=== PATIENT | female | born 1960 | race Caucasian/White ===

== ENCOUNTER → 2016-04-30 | Outpatient (CLI) | payer BC ==
[~2016-04-30] MED LIST: LEVO125C2 PO; NAPR1TAB9 PO
[2016-04-30 12:51] LABS: THYROID STIMULATING HORMONE 0.01 uIu/ml (0.300-4.500)
== END | disposition home or self-care (01) ==
LOC: C.LAB1850 10:53
PROVIDERS: ATTEND Family Medicine
DX: E89.0 Postprocedural hypothyroidism (principal)

== ENCOUNTER → 2016-06-12 | Outpatient (CLI) | payer BC ==
[2016-06-12 12:38] LABS: THYROID STIMULATING HORMONE < 0.005 uIu/ml (0.300-4.500)
== END | disposition home or self-care (01) ==
LOC: C.LAB1850 11:03
PROVIDERS: ATTEND Internal Medicine Endocrinology, Diabetes & Metabolism
DX: E03.9 Hypothyroidism, unspecified (principal)

== ENCOUNTER → 2016-07-24 | Outpatient (CLI) | payer BC ==
[2016-07-24 14:56] LABS: THYROID STIMULATING HORMONE 0.009 uIu/ml (0.300-4.500)
== END | disposition home or self-care (01) ==
LOC: C.LAB1850 13:28
PROVIDERS: ATTEND Physician Assistant
DX: E03.9 Hypothyroidism, unspecified (principal)

== ENCOUNTER → 2016-08-05 | Outpatient (CLI) | payer BC ==
--- NOTE | 2016-08-05 13:10 | DIAGNOSTIC IMAGING REPORT ---
TWO VIEW CHEST CLINICAL HISTORY: Epigastric abdominal pain. FINDINGS: PA and lateral chest radiographs are obtained. No prior studies are available for comparison at the time of dictation. The cardiomediastinal silhouette is unremarkable. Nonspecific interstitial thickening is noted. There is no airspace consolidation or pleural effusion. There is no pneumothorax. The bony thorax appears intact. IMPRESSION: No active disease in the chest. Electronically signed by: Gabe Kessler M.D. 08/05/2016 1:08 PM Dictated Date/Time: 08/05/2016 1:07 PM
== END | disposition home or self-care (01) ==
LOC: C.RAD1850 12:43
PROVIDERS: ATTEND Internal Medicine
DX: R10.13 Epigastric pain (principal)

== ENCOUNTER → 2016-08-24 | Outpatient (CLI) | payer BC ==
[2016-08-24 12:36] LABS: THYROID STIMULATING HORMONE 0.009 uIu/ml (0.300-4.500)
== END | disposition home or self-care (01) ==
LOC: C.LAB1850 10:53
PROVIDERS: ATTEND Physician Assistant
DX: Z11.59 Encounter for screening for other viral diseases (principal); E03.9 Hypothyroidism, unspecified

== ENCOUNTER → 2016-10-19 | Outpatient (CLI) | payer BC ==
[2016-10-19 11:31] LABS: THYROID STIMULATING HORMONE 0.02 uIu/ml (0.300-4.500)
== END | disposition home or self-care (01) ==
LOC: C.LAB1850 09:36
PROVIDERS: ATTEND Physician Assistant
DX: E03.9 Hypothyroidism, unspecified (principal)

== ENCOUNTER → 2016-12-18 | Outpatient (CLI) | payer BC ==
[2016-12-18 15:43] LABS: THYROID STIMULATING HORMONE 0.286 uIu/ml (0.300-4.500)
[2016-12-21 14:19] LABS: THYROGLOBULIN <0.1 NG/ML (2.8-40.9)
== END | disposition home or self-care (01) ==
LOC: C.LAB1850 13:47
PROVIDERS: ATTEND Internal Medicine Endocrinology, Diabetes & Metabolism
DX: C73 Malignant neoplasm of thyroid gland (principal); E89.0 Postprocedural hypothyroidism

== ENCOUNTER → 2016-12-28 | Outpatient (CLI) | payer BC ==
[2016-12-28 17:13] LABS: BASO % 0.2 %; BASO ABS # 0.02 K/uL (0-0.2); COMPLETE YES; EOS % 1.4 %; HEMATOCRIT 45.5 % (37-47); IG% 0.2 %; LYMPH % 32.2 %; LYMPH ABS # 2.95 K/uL (1.2-3.4); MEAN CORPUSCULAR HEMOGLOBIN 30.1 pg (25-34); MEAN CORPUSCULAR HGB CONC 33.8 g/dl (32-36); MEAN PLATELET VOLUME 10.2 fL (7.4-10.4); MONO % 5.3 %; NEUT % 60.7 %; PLATELET COUNT 407 K/uL (130-400); RED BLOOD COUNT 5.11 M/uL (4.2-5.4); WHITE BLOOD COUNT 9.17 K/uL (4.8-10.8)
[2016-12-28 17:23] LABS: ALT/SGPT 36 U/L (12-78); BLOOD UREA NITROGEN 13 mg/dl (7-18); BUN/CREATININE RATIO 16.5 (10-20); CALCIUM 9.1 mg/dl (8.5-10.1); CARBON DIOXIDE 27 mmol/L (21-32); CHLORIDE 105 mmol/L (98-107); CHOLESTEROL 261 mg/dl (0-200); GLUCOSE 93 mg/dl (70-99); POTASSIUM 3.9 mmol/L (3.5-5.1); SODIUM 140 mmol/L (136-145); TRIGLYCERIDES 506 mg/dl (0-150)
[2016-12-28 17:26] LABS: ALB/GLOB RATIO 1.1 (0.9-2); ALKALINE PHOSPHATASE 120 U/L (45-117); AST/SGOT 24 U/L (15-37); CHOLESTEROL/HDL RATIO 6.7; HDL CHOLESTEROL 39 mg/dl
[2016-12-29 06:20] LABS: ESTIMATED AVERAGE GLUCOSE 108 mg/dl; HA1C FLAG Normal (Normal)
== END | disposition home or self-care (01) ==
LOC: C.LABBC 15:25
PROVIDERS: ATTEND Physician Assistant Medical
DX: Z00.00 Encounter for general adult medical examination without abnormal findings (principal); E78.5 Hyperlipidemia, unspecified; R73.01 Impaired fasting glucose; E89.0 Postprocedural hypothyroidism; E55.9 Vitamin D deficiency, unspecified; K21.9 Gastro-esophageal reflux disease without esophagitis

== ENCOUNTER → 2016-12-29 | Outpatient (CLI) | payer BC ==
--- NOTE | 2016-12-30 08:10 | MAMMOGRAPHY REPORT ---
BILATERAL DIGITAL SCREENING MAMMOGRAM TOMOSYNTHESIS WITH CAD: 12/29/2016 CLINICAL HISTORY: Routine screening. Patient has no complaints. TECHNIQUE: Breast tomosynthesis in addition to standard 2D mammography was performed. Current study was also evaluated with a Computer Aided Detection (CAD) system. COMPARISON: Comparison is made to exams dated: 12/24/2015 mammogram, 12/18/2014 mammogram, 09/19/2013 ul trasound, 09/19/2013 mammogram, 09/12/2013 mammogram - [facility], and 09/07/2012 mammo gram - [facility]. BREAST COMPOSITION: The tissue of both breasts is heterogeneously dense, which may obscure small mas ses. FINDINGS: There are scattered benign coarse calcifications in the breasts. No suspicious mass, archi tectural distortion or cluster of microcalcifications is seen. IMPRESSION: ACR BI-RADS CATEGORY 1: NEGATIVE There is no mammographic evidence of malignancy. A 1 year screening mammogram is recommended. The pa tient will receive written notification of the results. Approximately 10% of breast cancers are not detected with mammography. A negative mammographic report should not delay biopsy if a clinically suggestive mass is present. Kianna Smith M.D. ay/:12/29/2016 16:46:35 Scholastic Aptitude Test Grader: Tresa SHEEHAN(Jaden)(M), [facility] letter sent: Normal 1/2 BI-RADS Code: ACR BI-RADS Category 1: Negative
== END | disposition home or self-care (01) ==
LOC: C.MAMM 10:24
PROVIDERS: ATTEND Family Medicine
DX: Z12.31 Encounter for screening mammogram for malignant neoplasm of breast (principal)

== ENCOUNTER → 2017-01-06 | Outpatient (CLI) | payer BC ==
[2017-01-06 10:54] LABS: CHOLESTEROL 249 mg/dl (0-200); CHOLESTEROL/HDL RATIO 5.8; HDL CHOLESTEROL 43 mg/dl; TRIGLYCERIDES 195 mg/dl (0-150); VERY LOW DENSITY LIPOPROT CALC 39 mg/dl
== END | disposition home or self-care (01) ==
LOC: C.LAB1850 09:22
PROVIDERS: ATTEND Physician Assistant Medical
DX: E78.5 Hyperlipidemia, unspecified (principal)

== ENCOUNTER → 2017-01-06 | Outpatient (CLI) | payer BC | END | disposition home or self-care (01) | LOC: C.MAMM 08:54 | PROVIDERS: ATTEND Physician Assistant Medical | DX: E55.9 Vitamin D deficiency, unspecified (principal); E03.9 Hypothyroidism, unspecified; M85.89 Other specified disorders of bone density and structure, multiple sites ==

== ENCOUNTER → 2017-03-25 | Outpatient (CLI) | payer BC ==
--- NOTE | 2017-03-25 11:48 | DIAGNOSTIC IMAGING REPORT ---
LUMBAR SPINE W/O CONTRAST HISTORY: Pain. Neuropathy. SPINAL STENOSIS TECHNIQUE: Multiplanar multisequence MRI of the lumbar spine was performed without the use of contrast. COMPARISON: 03/25/2015 FINDINGS: For the purpose of the report the L5-S1 disc space will be located on axial image 27 of 30. Unremarkable signal characteristics the vertebral bodies. Mild degenerative disc desiccation throughout the entire lumbar region. This is unchanged from the prior study. L1-L2: Mild broad-based bulging disc. Minimal impact anterior thecal sac. No change from the prior study. L2-L3: No significant central canal or neural foraminal narrowing. L3-L4: No significant central canal or neural foraminal narrowing. L4-L5: No significant central canal or neural foraminal narrowing. L5-S1: No significant central canal or neural foraminal narrowing. IMPRESSION: 1. Mild broad-based disc bulge at L1-L2 with minimal impact anterior thecal sac. 2. This is unchanged in the prior study. 3. Remainder the study is unremarkable with no evidence for significant disc herniation or significant component of spinal stenosis. The above report was generated using voice recognition software. It may contain grammatical, syntax or spelling errors. Electronically signed by: Jerrod Grimaldo M.D. 03/25/2017 11:47 AM Dictated Date/Time: 03/25/2017 11:42 AM
== END | disposition home or self-care (01) ==
LOC: C.MRIBC 10:47
PROVIDERS: ATTEND Orthopaedic Surgery Orthopaedic Surgery of the Spine
DX: M48.00 Spinal stenosis, site unspecified (principal); M51.26 Other intervertebral disc displacement, lumbar region

== ENCOUNTER → 2017-03-31 | Outpatient (CLI) | payer BC ==
--- NOTE | 2017-03-31 17:25 | DIAGNOSTIC IMAGING REPORT ---
L LOWER EXT JOINT WITHOUT CLINICAL HISTORY: 56 years-old Female presenting with L KNEE PAIN, surgery one and a half years ago, pain along the lateral aspect, no recent injury. TECHNIQUE: Multisequence, multiplanar MR imaging of the left knee was performed without the use of intravenous contrast. IV contrast: None. COMPARISON: 07/08/2015. FINDINGS: Localizer images: Unremarkable. Bony edema noted in the subchondral patella along the superior aspect of the lateral facet decreased since prior exam. No new sites of bony edema. Articular cartilage irregularity/fissuring along the lateral patellar facet. No significant opposing changes of the lateral trochlea. Delamination cartilage defect noted suggested along the superior portion of the medial patellar facet (series 4 image 12). Remainder of articular cartilage is preserved. The previously noted horizontal tear of the posterior horn body junction of the lateral meniscus now demonstrates only focal central abnormal signal intensity possibly indicating repair or healing. Minimal irregularity of the undersurface of the meniscus at this level. There is also blunting of the body of the meniscus which may also represent postsurgical change. Linear abnormal signal intensity extends into the anterior horn body junction as on prior exam, not significantly changed in appearance. Medial meniscus intact. Anterior and posterior cruciate ligaments intact. Medial collateral ligament intact. Lateral collateral ligament complex including the biceps femoris tendon, fibular collateral ligament, popliteus tendon, and iliotibial band intact. However, increased signal intensity noted at the insertional fibers of the iliotibial band (series 8 image 12). Subtle edema is noted superficial and deep to this region of the tendon. Quadriceps tendon intact. Increased signal at the insertional fibers of the patellar tendon is series 6 image 13). Minimal prepatellar and infrapatellar subcutaneous edema. Small knee joint effusion with possible synovitis. Stranding in Hoffa's fat pad may relate to postsurgical change. No popliteal cyst. Normal muscle bulk and muscle signal intensity. IMPRESSION: 1. Chondral irregularity and subchondral edema primarily in the medial facet of the patella consistent with patellofemoral degenerative change. Additional suggestion of delamination cartilage injury along the lateral patellar facet. 2. Postsurgical changes or partial healing of the previously noted horizontal tear of the lateral meniscus. Persistent linear abnormal signal intensity at the anterior horn body junction of the lateral meniscus may indicate persistent degenerative type tear. 3. Tendinosis of the patellar tendon. 4. Abnormal signal intensity and thickening of the iliotibial band with subtle associated edema may indicate grade 1 sprain. 5. Small knee joint effusion. Electronically signed by: Matt Cuevas M.D. 03/31/2017 5:24 PM Dictated Date/Time: 03/31/2017 5:15 PM
== END | disposition home or self-care (01) ==
LOC: C.MRIBC 16:28
PROVIDERS: ATTEND Orthopaedic Surgery
DX: M25.562 Pain in left knee (principal)

== ENCOUNTER → 2017-04-19 | Outpatient (CLI) | payer OTHER ==
[~2017-04-19] MED LIST changes: +LEVO75CA2 PO; +MULT-506 PO; +RANI150T3 PO
== END | disposition home or self-care (01) ==
LOC: C.LAB1850 13:37
PROVIDERS: ATTEND Internal Medicine Endocrinology, Diabetes & Metabolism
DX: E89.0 Postprocedural hypothyroidism (principal)

== ENCOUNTER → 2017-04-27 | Day surgery (SDC) | payer OTHER ==
[2017-04-19 11:20] VITALS: Ht 160 cm; Wt 72.7 kg
[2017-04-23 16:18] LABS: BASO % 0.3 %; BASO ABS # 0.02 K/uL (0-0.2); EOS % 1.4 %; HEMATOCRIT 42.6 % (37-47); HEMOGLOBIN 15.3 g/dL (12.0-16.0); IG# 0.02 K/uL (0.00-0.02); LYMPH % 33.8 %; LYMPH ABS # 2.48 K/uL (1.2-3.4); MEAN CELL VOLUME 88.6 fL (80-100); MEAN CORPUSCULAR HEMOGLOBIN 31.8 pg (25-34); MEAN CORPUSCULAR HGB CONC 35.9 g/dl (32-36); MEAN PLATELET VOLUME 10.2 fL (7.4-10.4); MONO ABS # 0.37 K/uL (0.11-0.59); NEUT % 59.2 %; NEUT ABS # 4.34 K/uL (1.4-6.5); PLATELET COUNT 347 K/uL (130-400); RED CELL DISTRIBUTION WIDTH CV 12.4 % (11.5-14.5); RED CELL DISTRIBUTION WIDTH SD 39.9 fL (36.4-46.3); WHITE BLOOD COUNT 7.33 K/uL (4.8-10.8)
[2017-04-23 16:24] LABS: POTASSIUM 3.8 mmol/L (3.5-5.1)
[~2017-04-27] VITALS: Ht 160 cm; Wt 72.7 kg
[~2017-04-27] MED LIST changes: +ATROPINE SULFATE 0.1 MG/ML 5ML SYR IV PRN; +BUPIVACAINE 0.5 % 5 MG/1 ML PF 10ML VIAL ONE; +CEFAZOLIN 1000MG IV PUSH 5 ML IV SCH; +DEXAMETHASONE SOD INJ 4 MG/ML VIAL ONE; +EpHEDrine SULFATE INJ 50 MG/ML AMP IV PRN; +EpINEphrine INJ 1MG/ML AMP 1 MG/ML AMP ONE; +FENTANYL CITRATE INJ 50 MCG/1 ML 2 ML VIAL IV PRN; +FENTANYL CITRATE INJ 50 MCG/1 ML 2 ML VIAL ONE; +KETOROLAC TROMETHAMINE 30 MG/ML VIAL ONE; -LEVO125C2 PO; +LIDOCAINE HCL 2% 2 ML VIAL (20MG/ML) ONE; +MIDAZOLAM HCL 1 MG/ML 2ML VIAL ONE; -NAPR1TAB9 PO; +ONDANSETRON INJ 2 MG/ML 2 ML VIAL IV PRN; +ONDANSETRON INJ 2 MG/ML 2 ML VIAL ONE; +OXYCODONE/ACETAMINOPHEN 5-325 TAB PO PRN; +PROPOFOL IV EMULSION 10 MG/ML 20 ML VIAL IV ONE; +ROPIVACAINE 0.5% 5 MG/ML 30 ML VIAL ONE; +SODIUM CHLORIDE 0.9% 1000ML 1,000 ML IV SCH; +TRAM-10 PO
--- NOTE | 2017-04-27 07:19 | History & Physical Bridge - SC ---
H&P Re-Evaluation Bridge Note: I have examined the patient, reviewed the History & Physical and in the interval since the performance of the History & Physical I have noted the following changes of clinical significance: No changes noted
[2017-04-27] MEDS: LACTATED RINGER'S 1000ML 1,000 ML IV SCH ×2 (07:43→09:15)
--- NOTE | 2017-04-27 08:47 | [facility] Post Operative Brief Note ---
Immediate Operative Summary Operative Date Apr 27, 2017. Pre-Operative Diagnosis Left Knee Lateral Meniscal Tear Post-Operative Diagnosis Same Procedure(s) Performed Left Knee Arthroscopy, Partial Lateral Meniscectomy Surgeon Dr. Dutta Volunteer Services Supervisor Surgeon(s) Jameel Ziegler PA-C Estimated Blood Loss None Findings ABOVE AND DICTATED Specimens None Anesthesia LMA Complication(s) None Disposition Recovery Room / PACU
--- NOTE | 2017-04-27 08:59 | Discharge Instructions-SurgCtr ---
Discharge Instructions Date of Service Apr 27, 2017. Visit Reason for Visit: Left Knee Lateral Meniscus Tear Discharge Discharge Diagnosis / Problem: SAME ABOVE Discharge Goals Goal(s): Decrease discomfort, Improve function Activity Recommendations Activity Limitations: as noted below Lifting Limitations: gradually increase as tolerated Exercise/Sports Limitations: until after follow-up appointment Weightbearing Status: Left weightbearing (as tolerated) Anesthesia . Post Anesthesia Instructions: If you have had General Anesthesia or IV Sedation: * Do not drive today. * Resume driving when surgeon permits. * Do not make important decisions or sign legal documents today. * Call surgeon for: 1. Temperature elevations greater than 101 degrees F. 2. Uncontrollable pain. 3. Excessive bleeding. 4. Persistent nausea and vomiting. 5. Medication intolerance (nausea, vomiting or rash). * For nausea and vomiting use only clear liquids such as: tea, soda, bouillon until nausea subsides, then gradually increase diet as tolerated. * If you have any concerns or questions, call your surgeon's office. If physician is unavailable and it is an emergency, call 911 or go to the nearest emergency room. . Instructions / Follow-Up Instructions / Follow-Up MEDICATIONS: * Resume previous medications unless instructed otherwise by your surgeon. * Always take pain medication on a full stomach or with food to avoid upset stomach. * Do not drink alcohol or drive while taking narcotics. * Ibuprofen or Tylenol may be taken if narcotic not needed. SPECIAL CARE INSTRUCTIONS: __ None _X_ Keep extremity elevated and iced x 48 hours; apply ice 20-30 minutes 8-10 times/day. May remove at night. __ Crutches __ May discard when able __ Brace/Post-op shoe __ 24 hrs/day __ Remove at night _X_ Dressing __ Maintain until seen in office, may shower with plastic over site _X_ Remove dressings in 24-48 hours and then may shower _X_ Cover incisions with band-aids after showering __ Do not remove steri-strips Call physician if chills or temperature rises above 102 degrees or pain unrelieved by prescribed pain medications. Office [phone] Diet Recommendations Home Diet: resume previous diet Procedures Procedures Performed: Left Knee Arthroscopy, Partial Lateral Meniscectomy Pending Studies Studies pending at discharge: no Medical Emergencies . Who to Call and When: Medical Emergencies: If at any time you feel your situation is an emergency, please call 911 immediately. . Non-Emergent Contact Non-Emergency issues call your: Primary Care Provider . . "Provider Documentation" section prepared by Agapito Ziegler. .
[2017-04-27 09:29] VITALS: TEMP 36.6
--- NOTE | 2017-04-27 09:52 | Anesthesia Progress Nt - [facility] ---
Anesthesia Post Op Note Date & Time Apr 27, 2017 at 09:52 Vital Signs Pain Intensity: 0 Vital Signs Past 12 Hours Date Time Temp Pulse Resp B/P (MAP) Pulse Ox O2 Delivery O2 Flow Rate FiO2 04/27/17 09:29 36.6 81 16 144/78 (100) 98 Room Air 04/27/17 09:25 144/76 04/27/17 09:24 86 11 100 04/27/17 09:24 85 11 04/27/17 09:23 83 14 98 04/27/17 09:23 83 14 04/27/17 09:22 114/97 04/27/17 09:20 37.2 90 17 114/97 99 Room Air 04/27/17 09:18 89 14 99 04/27/17 09:18 89 14 04/27/17 09:17 88 20 100 04/27/17 09:17 90 20 04/27/17 09:16 142/89 04/27/17 09:13 134/93 04/27/17 09:12 86 14 04/27/17 09:12 88 14 100 04/27/17 09:07 88 11 04/27/17 09:07 85 11 131/80 100 04/27/17 09:02 98 16 04/27/17 09:02 96 16 04/27/17 09:01 122/80 04/27/17 09:00 96 17 100 04/27/17 09:00 97 17 04/27/17 08:55 104 04/27/17 08:55 36.4 99 16 141/77 98 Mask 6 04/27/17 08:55 104 141/77 99 04/27/17 07:26 36.4 71 20 143/80 (101) 96 Room Air Notes Mental Status: alert / awake / arousable, participated in evaluation Pt Amnestic to Procedure: Yes Nausea / Vomiting: adequately controlled Pain: adequately controlled Airway Patency, RR, SpO2: stable & adequate BP & HR: stable & adequate Hydration State: stable & adequate Anesthetic Complications: no major complications apparent
[2017-04-27 09:58] VITALS: BP 136/79; PULSE 87; O2SAT 97
--- NOTE | 2017-04-27 10:34 | OPERATIVE REPORT ---
DATE OF OPERATION: 04/27/2017 PREOPERATIVE DIAGNOSIS: Retear lateral meniscus, left knee. POSTOPERATIVE DIAGNOSIS: Same. PROCEDURE: Left knee arthroscopy with partial lateral meniscectomy with a synovectomy. SURGEON: Matt Dutta MD. GRADUATE CIVIL ENGINEER: Agapito Ziegler PA-C. ANESTHESIOLOGIST: Dr. Chakco. ANESTHESIA: General. DRAINS: None. COMPLICATIONS: None. CONDITION: The patient tolerated the procedure well and returned to the recovery room in apparent satisfactory condition. INDICATIONS FOR SURGERY: Lolly is a 57-year-old female well known to me, having had surgery last year for lateral meniscus tear. At that time, she had 2 distinct problems. She had a posterior horn tear and she also had a partial tear of the anterior horn. We elected to take care of the posterior horn in hoping that the partial tear on the front edge will heal over time, but did not. She initially did well from surgery and then, started having problems again. We redid MRI and a clinical exam and felt that the partial part on the front did not heal and it probably tore more and we elected to go ahead and proceed with second knee operation for partial lateral meniscectomy. The procedure, expected outcomes, side effects, and risks were all explained in detail. I realized that she has a couple little spurs on her MRI too that could be the beginning of some arthritis problems, which we cannot address arthroscopically. DESCRIPTION OF PROCEDURE: The patient was taken to the OR, at which time she was placed supine on the operating table and put to sleep by the anesthesia department. Examination of the left knee was performed. Ligamentous daigle stable. We went ahead and prepped and draped in the usual sterile fashion. We began arthroscopic examination in the anteromedial and anterolateral portals. The medial compartment was fine. At the patellofemoral joint, we found some scar tissue that was shaved out. We found 1 little piece floating around in the medial compartment, which we were able to get that out with a shaver. Then, we progressed to the lateral compartment. We found an anterior horn lateral meniscus, which did not heal and did tear. There was a flap associated with it. I came in with upbiting scissors and full radius resector and trimmed that whole front rim out and we had to take it out. The posterior rim was still intact. There was a little spur of the anterior edge of the tibia. The articular surface itself looked pretty good. The ACL was fine also. I looked at the lateral gutter to make sure there were no tears there and all look good. The knee then was copiously irrigated. All cannulas were removed. Portals were closed with 4-0 nylon sutures. 30 mL of ropivacaine, 10 mg of Toradol, and 1 mL epinephrine was placed in the knee joint. Placed a sterile dressing of Xeroform, 4 x 4, ABD, Sof-Rol, and Wilmer bandage and returned back to recovery room in apparent satisfactory condition. SURGICAL FINDINGS: 1. We had a tear of the anterior horn of the lateral meniscus. 2. We had a small floating loose body. 3. There was some scar tissue of the patellofemoral joint. I attest to the content of the Intraoperative Record and any orders documented therein. Any exception s are noted below.
== END | disposition home or self-care (01) ==
LOC: X.SURG 07:07
PROVIDERS: ATTEND Orthopaedic Surgery
DX: S83.282A Other tear of lateral meniscus, current injury, left knee, initial encounter (principal); X58.XXXA Exposure to other specified factors, initial encounter; I10 Essential (primary) hypertension; E03.9 Hypothyroidism, unspecified; Z79.899 Other long term (current) drug therapy; Z85.850 Personal history of malignant neoplasm of thyroid; Z90.89 Acquired absence of other organs

== ENCOUNTER 2023-01-23 20:25 | Observation (INO) ==
[2023-01-23 21:18] LABS: Influenza A virus by PCR Negative (Neg); Influenza B virus by PCR Negative (Neg); RSV by PCR Negative (Neg); SARS CoV2 RNA(COVID-19) Ceph NEGATIVE (Negative)
[2023-01-23] MEDS ORDERED: dexAMETHasone**PF** 10 MG/ML VIAL IV ONE (21:23)
[2023-01-23] MEDS ORDERED: ALBUTEROL HFA 8 GM INHALER INH ONE (21:23)
--- NOTE | 2023-01-23 21:25 | Emergency Department Note ---
Impression & Plan SOB (shortness of breath), Leukocytosis, Cough, Elevated troponin, Tachypnea ED Provider Note NAME: NATHAN SPENCE AGE: 62 SEX: F : 1960 ARRIVES VIA: Ambulance INFORMANT: [Patient] ED PROVIDER(S): [Gabe Hawkins MD] CHIEF COMPLAINT: Shortness of breath, cough HISTORY OF PRESENT ILLNESS: The patient is a 62-year-old female who presents with 5 days of illness. She has been coughing and a bit short of breath. Tonight, she had a coughing spell and could not catch her breath. She felt panicked. Patient summoned EMS. She received 2 DuoNebs in route and does feel somewhat better. The patient believes she may have bronchitis as she has had similar symptoms with bronchitis before. The patient denies fever. No vomiting or diarrhea. She does have some chest pain to cough. She states that her family member recently did have COVID. The patient is not a smoker. PMHx/PSHx: See Below SOCIAL HISTORY: See Below. PHYSICAL EXAM: GENERAL: Patient is in no acute distress. HEENT: No acute trauma, normocephalic atraumatic, mucous membranes moist, no nasal congestion. NECK: No stridor, no adenopathy, no meningismus, trachea is midline. LUNGS: There are crackles at the left base, breath sounds are diminished, no wheezing, dry cough noted. No respiratory distress. HEART: Without murmurs gallops or rubs, regular rate and rhythm. ABDOMEN: Soft, nontender, bowel sounds positive, no peritonitis. EXTREMITIES: No cyanosis or edema, full range of motion of all the joints without pain or difficulty, no signs for acute trauma. NEUROLOGIC: Oriented x 3, no acute motor or sensory deficits, no focal weakness. SKIN: No rash, no jaundice, no diaphoresis. DIFFERENTIAL DIAGNOSIS: Bronchitis, pneumonia, viral illness, COVID-19, pneumothorax, anemia, OR, among others. EMERGENCY DEPARTMENT COURSE/PROCEDURES: Prior/Outside records reviewed: EMS notes. ECG per my interpretation: Indication was shortness of breath. The ECG shows a normal sinus rhythm with a rate of 67. There are some inverted T waves in the anterior leads. There is an incomplete right bundle branch block. There is no ST elevation, no PVCs. QTc is 462. Compared to an ECG from 22 March 2018, I see no significant change. Continuous Cardiac Monitoring per my interpretation: An order was placed for continuous cardiac monitoring. The monitor shows a rate of 79 with normal sinus rhythm. Observation Note: The patient was placed in observation status at 2114. Observation was initiated to help rule out cardiac ischemia and potentially dysrhythmia. During the time in observation, the patient was frequently reassessed and received albuterol via MDI, IV Decadron, continuous cardiac monitoring. Please see Dr. Coleman's note for the rest of the observation documentation. MEDICAL DECISION MAKING: There is a mild leukocytosis, this could be consistent with infection. There is a normal hemoglobin and platelet count. No coagulopathy. Potassium slightly low at 3.3, not in need of emergent correction. No renal failure. No concerning liver enzyme elevation. Initial cardiac troponin was slightly elevated at 48, this could be consistent with mismatch from her dyspnea or potentially cardiac injury. ECG showed a normal sinus rhythm, no obvious acute ischemic change. COVID, RSV and influenza test were negative. Chest film shows some diffuse parenchymal congestion consistent with potentially bronchitis, no focal infiltrate or pneumothorax per my review. Patient received IV Decadron, IV ceftriaxone, albuterol via MDI. She had received 2 DuoNebs prior to arrival. With this medication regimen, she was fe eling improved. Because of the troponin elevation, because of her reported dyspnea, a CT of the chest was ordered, this result is pending. A repeat troponin value was ordered, this result is pending. Patient's case was signed out to Dr. Coleman at the change of shift, her disposition is pending. DISPOSITION: Currently still a patient here in the ED. 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 Managed with supplemental levothyroxine Primary hypertension Surgical History History of ankle surgery History of arthroscopic knee surgery Left knee x 2 History of esophagogastroduodenoscopy (EGD) Hx of colonoscopy Hx of tubal ligation S/P thyroidectomy (12/05/13) Family History Uncle Hemochromatosis Father Hemochromatosis Osteoarthritis Prostate cancer Skin cancer Diabetes Alzheimer disease Brother Hemochromatosis Grandmother (Maternal) Leukemia Ovarian cancer Daughter Raynauds syndrome Systemic lupus erythematosus Sister Sjogren's syndrome Systemic lupus erythematosus Mother Breast cancer Mother Parkinsons disease Denies family history of Myocardial infarction Colorectal cancer Uterine cancer Social History Smoking Status: Never smoker Second Hand Exposure: No; Do You Dip or Chew Tobacco: No; Hx Alcohol Use: Yes ("very rare") Alcohol type: wine and hard liquor Hx Substance Use: No Preferred Language: Yi Communication Ability: Effective Visual Impairment: No Limitations Hearing Ability: Normal Sewing Line Baler Required: No Beliefs That Will Affect Care: None marital status: Current Living Situation: Spouse current occupational status: retired Feels Safe at Home: Yes caffeine: Yes Dental Care, Regularly: Yes Seatbelt Use: always Sunscreen Use: Yes Assistive Devices: Glasses Allergies Allergies Allergy/AdvReac Type Severity Reaction Status Date / Time No Known Allergies Allergy Verified 11/05/22 09:01 Home Meds Home Medications Medication Instructions Recorded Confirmed multivitamin 1 tab PO QAM 12/16/18 12/08/22 acetaminophen 500 mg tablet 500 mg PO QID PRN Pain 12/16/21 12/08/22 ibuprofen 125 mg-acetaminophen 250 1 tab PO Q8H PRN Pain 12/16/21 12/08/22 mg tablet (Advil Dual Action) Previous Rx's Medication Instructions Recorded lorazepam 0.5 mg tablet 0.5 mg PO DAILY PRN flight anxiety 02/23/22 #5 tabs propranolol 10 mg tablet 10 mg PO BID #180 tabs 05/29/22 rosuvastatin 10 mg tablet 10 mg PO DAILY #90 tabs 07/29/22 escitalopram oxalate 10 mg tablet 10 mg PO QAM #90 tabs 08/03/22 hydrochlorothiazide 25 mg tablet 25 mg PO DAILY #90 tabs 11/05/22 triamcinolone acetonide 0.5 % 1 applic topical BID #30 grams 11/05/22 topical ointment levothyroxine 88 mcg tablet 88 mcg PO DAILY #90 tabs 01/12/23 Results & Data (ED) Vital Signs Vital Signs - 24 hr 01/23/23 20:27 01/23/23 22:18 01/23/23 22:17 Temperature 36.6 C Temperature Source Temporal Artery Scan Pulse Rate 79 75 Respiratory Rate 20 Respiratory Depth Normal Blood Pressure 167/86 H Blood Pressure Mean 113 Pulse Oximetry 97 98 Oxygen Delivery Method Room Air Room Air Oxygen Flow Rate 0 Sepsis Recent Fever Within 48 Hours No Sepsis New/Unexplained Change in Mental Status N/A Sepsis Action Taken by Nursing No Action Required 01/23/23 22:23 01/23/23 22:30 01/23/23 23:00 Temperature Temperature Source Pulse Rate 65 73 70 Respiratory Rate 18 22 26 H Respiratory Depth Blood Pressure 139/68 144/75 H 169/77 H Blood Pressure Mean 91 98 107 Pulse Oximetry 96 95 94 Oxygen Delivery Method Oxygen Flow Rate Sepsis Recent Fever Within 48 Hours Sepsis New/Unexplained Change in Mental Status Sepsis Action Taken by Residential Medications Current Medication List: was personally reviewed by me Laboratory Data Attestation: I reviewed the patient's lab results. 01/23/23 22:09 01/23/23 22:09 Lab Results 01/23/23 01/23/23 01/23/23 Range/Units 22:09 22:09 22:09 WBC 11.01 H (4.8-10.8) K/ul RBC 4.87 (4.20-5.40) M/uL Hgb 15.5 (12.0-16.0) g/dl Hct 42.9 (37.0-47.0) % MCV 88.1 (80.0-100.0) fL MCH 31.8 (25.0-34.0) pg MCHC 36.1 H (32.0-36.0) g/dL RDW Std Deviation 38.4 (36.4-46.3) fL RDW Coeff of Elsa 11.9 (11.5-14.5) % Plt Count 363 (130-400) K/uL MPV 10.3 (9.4-12.4) fL Immature Gran % (Auto) 0.2 % Neut % (Auto) 62.6 % Lymph % (Auto) 26.4 % [place] % (Auto) 7.3 % Eos % (Auto) 3.0 % Baso % (Auto) 0.5 % Neut # (Auto) 6.89 H (1.40-6.50) K/uL Lymph # (Auto) 2.91 (1.20-3.40) K/uL [place] # (Auto) 0.80 H (0.11-0.59) K/uL Eos # (Auto) 0.33 (0.00-0.50) K/uL Baso # (Auto) 0.06 (0.00-0.20) K/uL Immature Gran # (Auto) 0.02 (0.01-0.20) K/uL PT 10.3 (9.0-12.0) Seconds INR 0.9 (0.9-1.1) APTT 27.7 (21.0-31.0) Seconds PTT Ratio 1.0 Sodium 139 (136-145) mmol/L Potassium 3.3 L (3.5-5.1) mmol/L Chloride 102 (98-107) mmol/L Carbon Dioxide 28 (21-32) mmol/L Anion Gap 9 (3-11) BUN 13 (6-23) mg/dl Creatinine 0.77 (0.6-1.2) mg/dl Est Cr Clr Drug Dosing Not Reportable Est GFR ( Amer) 95.9 ml/min Est GFR (Non-Af Amer) 82.8 ml/min BUN/Creatinine Ratio 16.9 (10-20) Glucose 120 H (70-99(Fasting)) mg/dl Calcium 9.6 (8.6-10.3) mg/dl Magnesium 2.0 (1.7-2.4) mg/dl Total Bilirubin 0.4 (0.2-1.0) mg/dl AST 27 (13-39) U/L ALT 30 (7-52) U/L Alkaline Phosphatase 73 (34-104) U/L Troponin I High Sens 48.0 H (0-14) pg/ml Total Protein 7.9 (6.0-8.3) gm/dl Albumin 4.8 (3.4-5.0) gm/dl Globulin 3.1 (2.5-4.0) gm/dl Albumin/Globulin Ratio 1.5 (0.9-2) SARS-CoV-2 (PCR) (Negative) Influenza Type A (PCR) (Neg) Influenza Type B (PCR) (Neg) RSV (RT-PCR) (Neg) 01/23/23 Range/Units Unknown WBC (4.8-10.8) K/ul RBC (4.20-5.40) M/uL Hgb (12.0-16.0) g/dl Hct (37.0-47.0) % MCV (80.0-100.0) fL MCH (25.0-34.0) pg MCHC (32.0-36.0) g/dL RDW Std Deviation (36.4-46.3) fL RDW Coeff of Elsa (11.5-14.5) % Plt Count (130-400) K/uL MPV (9.4-12.4) fL Immature Gran % (Auto) % Neut % (Auto) % Lymph % (Auto) % [place] % (Auto) % Eos % (Auto) % Baso % (Auto) % Neut # (Auto) (1.40-6.50) K/uL Lymph # (Auto) (1.20-3.40) K/uL [place] # (Auto) (0.11-0.59) K/uL Eos # (Auto) (0.00-0.50) K/uL Baso # (Auto) (0.00-0.20) K/uL Immature Gran # (Auto) (0.01-0.20) K/uL PT (9.0-12.0) Seconds INR (0.9-1.1) APTT (21.0-31.0) Seconds PTT Ratio Sodium (136-145) mmol/L Potassium (3.5-5.1) mmol/L Chloride (98-107) mmol/L Carbon Dioxide (21-32) mmol/L Anion Gap (3-11) BUN (6-23) mg/dl Creatinine (0.6-1.2) mg/dl Est Cr Clr Drug Dosing Est GFR ( Amer) ml/min Est GFR (Non-Af Amer) ml/min BUN/Creatinine Ratio (10-20) Glucose (70-99(Fasting)) mg/dl Calcium (8.6-10.3) mg/dl Magnesium (1.7-2.4) mg/dl Total Bilirubin (0.2-1.0) mg/dl AST (13-39) U/L ALT (7-52) U/L Alkaline Phosphatase (34-104) U/L Troponin I High Sens (0-14) pg/ml Total Protein (6.0-8.3) gm/dl Albumin (3.4-5.0) gm/dl Globulin (2.5-4.0) gm/dl Albumin/Globulin Ratio (0.9-2) SARS-CoV-2 (PCR) NEGATIVE (Negative) Influenza Type A (PCR) Negative (Neg) Influenza Type B (PCR) Negative (Neg) RSV (RT-PCR) Negative (Neg) Administered Medications Discontinued Medications Albuterol (Albuterol Hfa 8 Gm Inhaler) 2 puffs INH NOW ONE Stop: 01/23/23 21:24 Last Admin: 01/23/23 22:09 Dose: 2 puffs Documented By: VAL Dexamethasone Sodium Phosphate (DexamethasonePf 10 Mg/Ml Vial) 6 mg IV NOW ONE Stop: 01/23/23 21:24 Last Admin: 01/23/23 22:09 Dose: 6 mg Documented By: VAL Ceftriaxone Sodium (Rocephin) 2,000 mg in 50 mls @ 100 mls/hr IV NOW STA Stop: 01/23/23 23:12 Last Admin: 01/23/23 23:17 Dose: 100 mls/hr Documented By: VAL Ioversol (Optiray 320 500ml) 80 ml IV ONCE ONE Stop: 01/24/23 00:00 Last Admin: 01/24/23 00:01 Dose: 80 ml Documented By: ORACIO Imaging Data Attestation: I personally reviewed and interpreted this imaging study as follows: My Impression: Chest x-ray per my review: There is some parenchymal congestion consistent with potential bronchitis, there was no focal infiltrate or pneumothorax. Discharge Plan Visit Data Chief Complaint: Shortness of Breath/Dyspnea Stated Complaint: Illness, SOB, Cough ED Provider: Becky Coleman Discharge Problem: SOB (shortness of breath), Leukocytosis, Cough, Elevated troponin, Tachypnea Patient Disposition: Still a Patient Condition: Fair Forms Stand Alone Forms: My [facility] Prescriptions Prescriptions: No Action lorazepam 0.5 mg tablet 0.5 mg PO DAILY PRN (Reason: flight anxiety) Qty: 5 0RF propranolol 10 mg tablet 10 mg PO BID Qty: 180 3RF rosuvastatin 10 mg tablet 10 mg PO DAILY Qty: 90 3RF escitalopram oxalate 10 mg tablet 10 mg PO QAM Qty: 90 3RF levothyroxine 88 mcg tablet 88 mcg PO DAILY Qty: 90 1RF multivitamin tablet 1 tab PO QAM hydrochlorothiazide 25 mg tablet 25 mg PO DAILY Qty: 90 3RF triamcinolone acetonide 0.5 % ointment 1 applic topical BID Qty: 30 1RF Rx Instructions: for eczema lesions acetaminophen 500 mg Tablet 500 mg PO QID PRN (Reason: Pain) Advil Dual Action 125-250 mg Tablet 1 tab PO Q8H PRN (Reason: Pain) Referrals Referrals: Tania Murcia MD [Primary Care Provider] - Leukocytosis Qualifiers: Leukocytosis type: unspecified Qualified Code(s): D72.829 - Elevated white blo od cell count, unspecified Cough Qualifiers: Cough type: acute Qualified Code(s): R05.1 - Acute cough
[2023-01-23 22:38] LABS: Basophils # (auto) 0.06 K/uL (0.00-0.20); Basophils % (auto) 0.5 %; Eosinophils # (auto) 0.33 K/uL (0.00-0.50); Hematocrit (blood only) 42.9 % (37.0-47.0); Hemoglobin 15.5 g/dl (12.0-16.0); Immature Granulocytes # (auto) 0.02 K/uL (0.01-0.20); Immature Granulocytes % (auto) 0.2 %; Lymphocytes # (auto) 2.91 K/uL (1.20-3.40); Lymphocytes % (auto) 26.4 %; Mean Corpuscular Hemoglobin 31.8 pg (25.0-34.0); Mean Corpuscular Hgb Conc 36.1 g/dL (32.0-36.0); Mean Corpuscular Volume 88.1 fL (80.0-100.0); Mean Platelet Volume 10.3 fL (9.4-12.4); Monocytes % (auto) 7.3 %; Neutrophils # (auto) 6.89 K/uL (1.40-6.50); Neutrophils % (auto) 62.6 %; Platelet Count 363 K/uL (130-400); RDW Coefficient of Variation 11.9 % (11.5-14.5); RDW Standard Deviation 38.4 fL (36.4-46.3); Red Blood Count 4.87 M/uL (4.20-5.40); White Blood Count 11.01 K/ul (4.8-10.8)
[2023-01-23] MEDS ORDERED: cefTRIAXone SODIUM 2,000 MG/50 ML BAG IV STA (22:43)
[2023-01-23 22:46] LABS: Alanine Aminotransferase 30 U/L (7-52); Albumin Globulin Ratio 1.5 (0.9-2); Albumin Level 4.8 gm/dl (3.4-5.0); Alkaline Phosphatase 73 U/L (34-104); Anion Gap 9 (3-11); Aspartate Aminotransferase 27 U/L (13-39); BUN Creatinine Ratio 16.9 (10-20); Bilirubin,Total 0.4 mg/dl (0.2-1.0); Blood Urea Nitrogen 13 mg/dl (6-23); Calcium 9.6 mg/dl (8.6-10.3); Carbon Dioxide 28 mmol/L (21-32); Chloride 102 mmol/L (98-107); Est GFR (African American) 95.9 ml/min; Est GFR (Non-African American) 82.8 ml/min; Globulin 3.1 gm/dl (2.5-4.0); Glucose 120 mg/dl (70-99(Fasting)); Potassium 3.3 mmol/L (3.5-5.1); Sodium 139 mmol/L (136-145); Total Protein 7.9 gm/dl (6.0-8.3)
[2023-01-23 23:00] LABS: INR 0.9 (0.9-1.1); Partial Thromboplastin Time 27.7 Seconds (21.0-31.0); Prothrombin Time 10.3 Seconds (9.0-12.0)
[2023-01-23] MEDS ORDERED: OPTIRAY 320 500ml IV ONE (23:59)
--- NOTE | 2023-01-24 00:31 | Emergency Department Note ---
ED Visit Note This case was signed out to me at change of shift awaiting CT scan of the chest and a second troponin. She is currently in observation. She went into observation at 2113. She is hemodynamically stable. Second troponin elevated to 71.9 from 48. This is concerning and will require further evaluation and inpatient care by the [facility]ist. The CT scan of the chest was evaluated by stat rad and revealed no evidence of PE-see report. I discussed the case with the [facility] Hospitalist and they will evaluate for further inpatient care. .
--- NOTE | 2023-01-24 00:57 | CT Scan Report ---
Exam(s): CTA CHEST EXAM: CT Angiography Chest With Intravenous Contrast CLINICAL HISTORY: PE. TECHNIQUE: Axial computed tomographic angiography images of the chest with intravenous contrast. CTDI is 19.68 mGy and DLP is 597.14 mGy-cm. Automated exposure control was utilized for the study. A dose lowering technique was utilized adhering to the principles of ALARA. MIP reconstructed images were created and reviewed. COMPARISON: No relevant prior studies available. FINDINGS: Limitations: There is respiratory artifact, which degrades image quality on multiple image slices. Pulmonary arteries: Accounting for limitations with mild respiratory artifact, there is no evidence for pulmonary embolism. Aorta: No acute findings. No thoracic aortic aneurysm. Lungs: Heterogeneous attenuation throughout the lungs. No focal consolidation. Pleural space: Unremarkable. No significant effusion. No pneumothorax. Heart: Unremarkable. No cardiomegaly. No significant pericardial effusion. Bones/joints: No acute fracture. No dislocation. Soft tissues: Unremarkable. Lymph nodes: Unremarkable. No enlarged lymph nodes. IMPRESSION: 1. Accounting for limitations with mild respiratory artifact, there is no evidence for pulmonary embolism. 2. Heterogeneous attenuation throughout the lungs. No focal consolidation. No pleural effusion or pneumothorax. Electronically signed by: Mohan Vance MD 01/24/23 00:56 AM
--- NOTE | 2023-01-24 01:21 | History & Physical Report ---
Date of Service January 24, 2023 Assessment & Plan (1) SOB (shortness of breath): Plan: 62yo Female with PMH HTN HLD hypothyroidism Depression/Anxiety GERD here for concern cough SOB found to have elevated troponin SOB w/cough -in ED received duoneb albuterol ceftriaxone dexamethasone with improvement of symptoms -CTA chest: Accounting for limitations with mild respiratory artifact, there is no evidence for pulmonary embolism. Heterogeneous attenuation throughout the lungs. No focal consolidation. No pleural effusion or pneumothorax. -WBC 11.01, likely reactive -Bcx pending -admit to med/tele -ordered azithromycin 500mg daily for 3 days as anti-inflammatory -ordered PRN duonebs -consider symbicort for outpatient use once troponins resolve Elevated Troponin -trop 71.9, likely demand ischemia -trend trop HTN -continue HCTZ -hold propranolol HLD -continue rosuvastatin Hypothyroidism - continue Levothyroxine Lesions on Lower Legs -concern involvement of psoriasis v. psoriatic arthritis v. lupus -ordered ESR, RA, OLIVERIO last echo in july, if enzymes elevated consider repeat -continue topical steroids FENa: regular Code Status: Full DVT PPX: SCDs Dispo: med/tele Melanie Ceja D.O. PGY 3, FCM (2) Elevated troponin: (3) Primary hypertension: (4) Hyperlipidemia: (5) Postsurgical hypothyroidism: (6) Depression: (7) Generalized anxiety disorder with panic attacks: History of Present Illness Chief Complaint: SOB Primary Care Provider: Tania Murcia MD 62yo Female with PMH HTN HLD hypothyroidism Depression/Anxiety GERD here for concern cough SOB found to have elevated troponin. Patient states she has ongoing cough for the past few days with poor sleep, today she was sucking on a lozenge took a deep breath to cough and suddenly had an extended coughing fit, felt with she could not breath her throat closed up. Patient states she spit out her lozenge. She called her daughter who called 911. She received 2 duonebs in ambulance, received albuterol inh dexamethasone 6mg and ceftriaxone in ED, states her cough SOB is improved at this time. Patient denies any nausea abd pain. Does note recent headaches and diarrhea, recent poor sleep from coughing. Patient denies recent Of note patient complains of ongoing cough for the past year with SOB on exe rtion, has been using OTC mucinex to help symptoms, has albuterol inhaler at home that she used the last 2 days without improvement. Patient had recent normal PFTs echo and stress echo. She has GERD uses prn pepcid. She has seen her PCP and asp net programmer for this concern. Patient's and daughter currently out of town, states if someone needs to come in person please contact neighbor Marium Rubio at [phone]. Allergies Allergy/AdvReac Type Severity Reaction Status Date / Time No Known Allergies Allergy Verified 01/24/23 02:37 Home Medications Medication Instructions Recorded Confirmed Type multivitamin 1 tab PO QAM 12/16/18 01/24/23 History acetaminophen 500 mg tablet 500 mg PO QID PRN Pain 12/16/21 01/24/23 History ibuprofen 125 mg-acetaminophen 250 1 tab PO Q8H PRN Pain 12/16/21 01/24/23 History mg tablet (Advil Dual Action) lorazepam 0.5 mg tablet 0.5 mg PO DAILY PRN flight anxiety 02/23/22 01/24/23 Rx #5 tabs propranolol 10 mg tablet 10 mg PO BID #180 tabs 05/29/22 01/24/23 Rx rosuvastatin 10 mg tablet 10 mg PO DAILY #90 tabs 07/29/22 01/24/23 Rx escitalopram oxalate 10 mg tablet 10 mg PO QAM #90 tabs 08/03/22 01/24/23 Rx hydrochlorothiazide 25 mg tablet 25 mg PO DAILY #90 tabs 11/05/22 01/24/23 Rx levothyroxine 88 mcg tablet 88 mcg PO DAILY #90 tabs 01/12/23 01/24/23 Rx Past Med/Surg History Medical History History of anxiety History of COVID-19 12/01/21, pcr test [facility] and home test, not hosp; sore throat, fatigue, "overall not feeling well">"still has sore throat" Hx of thyroid cancer Thyroidectomy (2013) due to suspicious thyroid nodule that 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 Managed with supplemental levothyroxine Primary hypertension Surgical History History of ankle surgery History of arthroscopic knee surgery Left knee x 2 History of esophagogastroduodenoscopy (EGD) Hx of colonoscopy Hx of tubal ligation S/P thyroidectomy (12/05/13) Family History Uncle Hemochromatosis Father Hemochromatosis Osteoarthritis Prostate cancer Skin cancer Diabetes Alzheimer disease Brother Hemochromatosis Grandmother (Maternal) Leukemia Ovarian cancer Daughter Raynauds syndrome Systemic lupus erythematosus Sister Sjogren's syndrome Systemic lupus erythematosus Mother Breast cancer Mother Parkinsons disease Denies family history of Myocardial infarction Colorectal cancer Uterine cancer Social History Smoking Status: Never smoker Second Hand Exposure: No; Do You Dip or Chew Tobacco: No; Hx Alcohol Use: Yes Alcohol type: wine Hx Substance Use: No Preferred Language: Divehi Communication Ability: Effective Visual Impairment: No Limitations Hearing Ability: Normal Acquisition Marketing Manager Required: No Beliefs That Will Affect Care: None marital status: Current Living Situation: Spouse current occupational status: retired Feels Safe at Home: Yes caffeine: Yes Dental Care, Regularly: Yes Seatbelt Use: always Sunscreen Use: Yes Assistive Devices: None Physical Exam Constitutional: well developed, well nourished, cooperative and comfortable Eyes: PERRL, conjunctivae normal, anicteric sclerae ENMT: external ear and nose normal, oropharynx normal Neck: trachea midline, no thyromegaly Respiratory: normal respiratory effort, lungs clear to auscultation Cardiovascular: Rate/Rhythm: regular rate and regular rhythm Gastrointestinal (Abdomen): Inspection/Auscultation: abdomen normal to inspection Percussion/Palpation: abdomen soft; abdomen nontender Skin: patchy erythematous lesions with scaling noted on b/l lower extremites on anterior medial and lateral lower legs. Singular lesion noted on left elbow. Results & Data Results & Data Vital Signs (Past 12 Hours) Vital Signs Temp Pulse Resp BP Pulse Ox O2 Del Method O2 Flow Rate 01/24/23 00:30 68 18 151/79 H 95 01/23/23 23:30 70 24 156/88 H 94 01/23/23 23:00 70 26 H 169/77 H 94 01/23/23 22:30 73 22 144/75 H 95 01/23/23 22:23 65 18 139/68 96 01/23/23 22:17 75 01/23/23 22:18 98 Room Air 0 01/23/23 20:27 36.6 C 79 20 167/86 H 97 Room Air Supervising Physician Co-Signing Physician Notes Attending addendum: I have physically seen this patient, have supervised the medical residents activities, and agree with the H&P unless as otherwise noted. Assessment and Plan: Shortness of breath/cough- From the ED received the following: DuoNeb, ceftriaxone IV, dexamethasone 6 mg IV and Ventolin HFA, with some improvement in symptoms CTA chest with no significant findings Duonebs every 4 hours while awake and every 2 hours when necessary. Azithromycin 500 mg daily p.o. Symptoms are suggestive of a possible viral process, as patient has had 3 previous episodes of these which have been self-limited Elevated troponin/hypertension- Troponin 48 on admission with follow-up 71.9 The patient will be admitted to telemetry for serial cardiac enzymes, serial EKG's, cardiac rhythm monitoring and a 2-D echocardiogram with Dopplers. Unclear whether type I or type II at this point Can continue hydrochlorothiazide, but replace potassium Consult to cardiology
[2023-01-24] MEDS ORDERED: ESCITALOPRAM OXALATE 10 MG TAB PO SCH ×2 (02:00→21:00)
[2023-01-24] MEDS ORDERED: POTASSIUM CHLORIDE CRTAB 20 MEQ TABCR PO STA (02:19)
[2023-01-24] MEDS: MELATONIN 3 MG TAB PO PRN ×2 (03:56→21:26)
[2023-01-24 04:30] LABS: Hematocrit (blood only) 42.4 % (37.0-47.0); Hemoglobin 15.4 g/dl (12.0-16.0); Mean Corpuscular Hemoglobin 31.6 pg (25.0-34.0); Mean Corpuscular Hgb Conc 36.3 g/dL (32.0-36.0); Mean Corpuscular Volume 86.9 fL (80.0-100.0); Platelet Count 364 K/uL (130-400); RDW Coefficient of Variation 11.9 % (11.5-14.5); RDW Standard Deviation 38.4 fL (36.4-46.3); Red Blood Count 4.88 M/uL (4.20-5.40); White Blood Count 9.02 K/ul (4.8-10.8)
[2023-01-24] MEDS ORDERED: POLYETHYLENE (MIRALAX) 17 GM PACK PO PRN (04:33)
[2023-01-24] MEDS ORDERED: ALBUT/IPRATROP 3MG/0.5MG NEB 3 ML VIAL NEB PRN (04:33)
[2023-01-24] MEDS ORDERED: ACETAMINOPHEN 325 MG TAB PO PRN (04:33)
[2023-01-24 04:48] LABS: BUN Creatinine Ratio 16.4 (10-20); Calcium 9.7 mg/dl (8.6-10.3); Creatinine Clr Calc Pharmacy 80.8 ml/min; Est GFR (African American) 102.3 ml/min; Est GFR (Non-African American) 88.3 ml/min; Potassium 3.6 mmol/L (3.5-5.1)
[2023-01-24 05:18] LABS: Troponin I High Sensitivity 91.6 pg/ml (0-14)
[2023-01-24] MEDS: hydroCHLOROthiazide 25 MG TAB PO SCH (08:08)
[2023-01-24] MEDS: LEVOTHYROXINE SODIUM 88 MCG TABLET PO SCH (08:09)
[2023-01-24] MEDS: AZITHROMYCIN 250 MG TAB PO SCH (08:09)
[2023-01-24] MEDS ORDERED: hydrALAZINE HCL 20 MG/ML VIAL IV PRN (08:47)
[2023-01-24] MEDS ORDERED: hydrALAZINE HCL 20 MG/ML VIAL IV STA (08:47)
--- NOTE | 2023-01-24 09:05 | XRay Report ---
XR chest 1V portable CLINICAL HISTORY: Respiratory illness, no prior imaging TECHNIQUE: Single frontal radiograph of the chest was obtained. Comparison: Comparison is made to chest radiograph 04/30/2019 FINDINGS: No lines and tubes are seen. The cardiomediastinal silhouette is normal. Peribronchial thickening is seen. No evidence of pleural effusion or pneumothorax. IMPRESSION: Peribronchial thickening is seen compatible with infectious/inflammatory airways disease or viral pne umonia. No lisa consolidation is seen. ACT 112: Negative or not required by law. Electronically signed by: Surinder Lane M.D. 01/24/2023 9:03 AM
--- NOTE | 2023-01-24 15:19 | Hospitalist Progress Note ---
Date of Service January 24, 2023 Assessment & Plan (1) SOB (shortness of breath): Plan: 62yo Female with PMH HTN HLD hypothyroidism Depression/Anxiety GERD here for concern cough SOB found to have elevated troponin SOB w/cough -in ED received duoneb albuterol ceftriaxone dexamethasone with improvement of symptoms -CTA chest: Accounting for limitations with mild respiratory artifact, there is no evidence for pulmonary embolism. Heterogeneous attenuation throughout the lungs. No focal consolidation. No pleural effusion or pneumothorax. -No significant leukocytosis, procalcitonin normal, minimal elevation in BNP -Bcx pending -ordered azithromycin 500mg daily for anti-inflammatory properties and also includes coverage for atypical pneumonia -PRN duonebs -consider symbicort for outpatient use once troponins resolve -Notably significant psychosocial stressors recently that may contribute to the SOB -Supplemental O2 Elevated Troponin -trop peak 91.6, likely demand ischemia -Check echo HTN -continue HCTZ -hold propranolol -Added hydralazine x1 dose + PRN HLD -continue rosuvastatin Hypothyroidism - continue Levothyroxine Lesions on Lower Legs -concern involvement of psoriasis v. psoriatic arthritis v. lupus -ordered ESR, RF, OLIVERIO - ESR normal, RF and OLIVERIO pending -continue topical steroids FENa: regular Code Status: Full DVT PPX: SCDs Dispo: med/tele (2) Elevated troponin: (3) Primary hypertension: (4) Hyperlipidemia: (5) Postsurgical hypothyroidism: (6) Depression: (7) Generalized anxiety disorder with panic attacks: Admission and Anticipated Discharge Date Admission Date: January 24, 2023 Subjective Reports ongoing shortness of breath with intermittent coughing/choking episodes. At time of my evaluation, she reports she was mildly improved from initial presentation. Denies any lightheadedness or dizziness. Denies any fever/chills. Denies any significant chest pain. Notes significant psychosocial stressors recently Review of Systems Review of Systems: Per subjective Physical Exam Physical Exam: General: Well-appearing, NAD HEENT: Normal conjunctivae, erythematous nasal skin region, nasal cannula in place Cardiovascular: RRR, no M/R/G Pulmonary: CTAB, no W/R/R Abdomen: Soft, NT/ND, no guarding Extremities: Moving all extremities, no pedal edema Integumentary: Scattered scaly erythematous plaques and patches on bilateral lower Neurologic: AAOx3, no focal deficits Psychiatric: Appropriate mood/affect Results & Data Results & Data Vital Signs (Past 12 Hours) Vital Signs Temp Pulse Pulse Resp BP Pulse Ox Pulse Ox 01/24/23 13:00 36.7 C 74 18 149/74 H 95 01/24/23 09:35 73 18 153/73 H 95 01/24/23 08:55 65 195/98 H 01/24/23 08:15 01/24/23 08:15 36.7 C 81 16 188/113 H 95 01/24/23 08:07 36.7 C 70 16 188/113 H 93 01/24/23 07:07 75 01/24/23 04:35 92 01/24/23 04:35 82 20 159/78 H 94 01/24/23 04:28 74 01/24/23 04:10 87 L O2 Del Method O2 Del Method O2 Flow Rate O2 Flow Rate 01/24/23 13:00 Room Air 01/24/23 09:35 Nasal Cannula 2 01/24/23 08:55 01/24/23 08:15 Nasal Cannula 2 01/24/23 08:15 Nasal Cannula 2 01/24/23 08:07 Nasal Cannula 2 01/24/23 07:07 01/24/23 04:35 Nasal Cannula 2 01/24/23 04:35 Nasal Cannula 2 01/24/23 04:28 01/24/23 04:10 Room Air, Nasal Cannula 0 Laboratory Results Reviewed labs from this morning including CBC, BMPnotable for improved WBC to 9 Added on BNP and procalcitoninnotable for BNP just mildly elevated at 101 with normal procalcitonin Trended troponinpeaked at 91.6 and decreased to 57.3 ESR normal PG Care Time/CCT Total # of Minutes Spent Total Time Spent with Patient: Total time spent is greater than 50% in coordination of care (as documented) at patient's floor/unit and/or counseling patient: Coding Level of Care Code None Diagnoses SOB (shortness of breath) R06.02 Elevated troponin R79.89 Primary hypertension I10 Hyperlipidemia E78.5 Postsurgical hypothyroidism E89.0 Depression F32.9 Generalized anxiety disorder with panic attacks F41.1; F41.0
--- NOTE | 2023-01-24 20:43 | Billing Data ---
Date of Service January 24, 2023 Coding Level of Care Code 61876 INT INP/OBS CARE
[2023-01-24] MEDS ORDERED: ROSUVASTATIN CALCIUM 10 MG TAB PO SCH (21:00)
[2023-01-25] MEDS: LEVOTHYROXINE SODIUM 88 MCG TABLET PO SCH (05:38)
[2023-01-25] MEDS: hydroCHLOROthiazide 25 MG TAB PO SCH (08:28)
[2023-01-25] MEDS: AZITHROMYCIN 250 MG TAB PO SCH (08:28)
[2023-01-25] MEDS ORDERED: ALBUT/IPRATROP 3MG/0.5MG NEB 3 ML VIAL NEB ONE (11:43)
[2023-01-25] MEDS ORDERED: FLUTICASONE/VILANTEROL 100/25MCG 14 PUFFS/INHALER INH SCH (11:45)
[2023-01-25] MEDS ORDERED: guaiFENesin 600 MG TABCR PO SCH (11:45)
[2023-01-25] MEDS ORDERED: predniSONE 20 MG TAB PO STA (11:46)
--- NOTE | 2023-01-25 16:01 | XCELERA ---
[id number]
--- NOTE | 2023-01-25 17:18 | Discharge Summary ---
Date of Service January 25, 2023 Admission HPI Per Admitting Provider 62yo Female with PMH HTN HLD hypothyroidism Depression/Anxiety GERD here for concern cough SOB found to have elevated troponin. Patient states she has ongoing cough for the past few days with poor sleep, today she was sucking on a lozenge took a deep breath to cough and suddenly had an extended coughing fit, felt with she could not breath her throat closed up. Patient states she spit out her lozenge. She called her daughter who called 911. She received 2 duonebs in ambulance, received albuterol inh dexamethasone 6mg and ceftriaxone in ED, states her cough SOB is improved at this time. Patient denies any nausea abd pain. Does note recent headaches and diarrhea, recent poor sleep from coughing. Patient denies recent Of note patient complains of ongoing cough for the past year with SOB on exertion, has been using OTC mucinex to help symptoms, has albuterol inhaler at home that she used the last 2 days without improvement. Patient had recent normal PFTs echo and stress echo. She has GERD uses prn pepcid. She has seen her PCP and accounts receivable supervisor for this concern. Patient's and daughter currently out of town, states if someone needs to come in person please contact neighbor Marium Rubio at [phone]. Discharge Data Allergies Allergy/AdvReac Type Severity Reaction Status Date / Time No Known Allergies Allergy Verified 01/24/23 02:37 Consultations 01/24/23 02:28 ED Decision to Admit Stat Ordered Studies 01/23/23 23:02 CT angio chest PE protocol Stat Discharge Plan Discharge Items Patient Disposition: Home - Self-Care Reason For Visit: Shortness of breath Discharge Diagnosis: 1. Acute bronchitis 2. Mild hypokalemia (low potassium) - due to chronic hydrochlorothiazide use 3. Mildly elevated troponin - likely due to #1 and uncontrolled high blood pressure at time of ER presentation 4. High blood pressure 5. Past history of recurrent bronchitis Activity: As commented below Activity Comment: light activities only over the next 1-2 weeks during your recovery Exercise/Sports: Wait until after follow-up appointment Driving/Machine Use: NO DRIVING if taking codeine-based cough syrup Non-emergency contact: Primary Care Provider Call non-emergency contact if: you have any medication questions, your symptoms worsen and you have a fever Follow-up/Referrals: Tania Murcia MD [Primary Care Provider] - 02/03/23 11:00 am Diet: Heart Healthy Addtl Attending Provider Instructions: Mrs Smith, You were hospitalized due to shortness of breath. Your CT scan of the lungs and chest x-ray had findings that we often see with bronchitis. More than 90% of cases of acute bronchitis is typically caused by a virus; some episodes are caused by bacteria. We did not see pneumonia on your CT scan of the lungs. Steroids, breathing treatments, and antibiotics (if this was bacterial) were given. Your oxygen levels were normal on day of discharge including with activity. Your echocardiogram of your heart returned normal. Your heart has normal pumping capacity and normal valves. You have been having episodes of recurrent bronchitis over the last year. This would potentially suggest you might have an underlying asthmatic condition. Although you had PFTs earlier this year they can often be normal when you are feeling well. Recommendations - 1. prednisone course - start this tomorrow; take with food 2. Breo inhaler - this is a controller agent to help you through this episode as well as potentially prevent other episodes. Take 1 puff daily. Rinse your mouth with water after each use and spit out. 3. Over the counter mucinex is a good choice for cough. You can take up to 1200mg twice daily as desired. 4. If you have severe cough you can take codeine based cough syrup - 5ml every 6 hours as needed. This contains guaifenesin in it which is the ingredient of mucinex. Thus, please do not take any mucinex products if you elect to use the codeine cough syrup. This cough syrup can make you sleepy and can cause constipation. 5. For cough, wheezing, shortness of breath you can take albuterol via your spacer device - 2 puffs every 4 hours as needed. See handout on spacer device. 6. Antibiotics - start this TOMORROW am - doxycycline 100mg twice daily x 5 days. This medicine sometimes causes heartburn. It can also cause a rash if you spend a lot of time in the sun. While on this medication please limit sun exposure outdoors. If you go out just cover up and/or use sunscreen. 7. Please consider follow-up with the lung specialist you saw at [facility] in light of your recurrent episodes of bronchitis. 8. Finally, due to your hydrochlorothiazide use, please take a small potassium supplement 10meq daily. You can start this tomorrow morning. Have Dr Murcia repeat your potassium level when you see her. Follow-up - see separate section Return to [facility] if - * you have fevers over 100 degrees * you have worsening shortness of breath * you have chest pains * you have severe wheezing * any other concerns It was our pleasure to care for you! -Dr Blake Pending Studies at Discharge: No Stand-Alone Forms: [facility], Smoking Cessation Medications and DC Order Prescriptions: New doxycycline hyclate 100 mg tablet 100 mg PO BID 5 Days Qty: 10 0RF Rx Instructions: start AM of 01/26/23. prednisone 10 mg tablet 10 mg PO DIRECTED Qty: 23 0RF Rx Instructions: start 01/26, take w/ food. 4 tabs PO QD x 2 days; 3 tabs PO QD x 3 days; 2 tabs PO QD x 2 days; 1 tab PO QD x 2 days. fluticasone furoate-vilanterol [Breo Ellipta] 100-25 mcg/dose blister with device 1 inh inhalation DAILY Qty: 60 2RF albuterol sulfate [Ventolin HFA] 90 mcg/actuation HFA aerosol inhaler 2 inh inhalation Q4H PRN (Reason: shortness of breath or wheezing or cough) Qty: 8.5 0RF Rx Instructions: use with spacer device codeine-guaifenesin 10-100 mg/5 mL liquid 5 ml PO Q6H PRN (Reason: severe cough) Qty: 120 0RF potassium chloride 10 mEq tablet extended release 10 meq PO DAILY Qty: 30 0RF Continued lorazepam 0.5 mg tablet 0.5 mg PO DAILY PRN (Reason: flight anxiety) Qty: 5 0RF propranolol 10 mg tablet 10 mg PO BID Qty: 180 3RF rosuvastatin 10 mg tablet 10 mg PO DAILY Qty: 90 3RF escitalopram oxalate 10 mg tablet 10 mg PO QAM Qty: 90 3RF levothyroxine 88 mcg tablet 88 mcg PO DAILY Qty: 90 1RF multivitamin tablet 1 tab PO QAM hydrochlorothiazide 25 mg tablet 25 mg PO DAILY Qty: 90 3RF acetaminophen 500 mg Tablet 500 mg PO QID PRN (Reason: Pain) Held ibuprofen-acetaminophen [Advil Dual Action] 125-250 mg Tablet 1 tab PO Q8H PRN (Reason: Pain) Hold Instructions: HOLD while you are taking your prednisone course. Discharge Orders: Discharge Order (Routine); Ordered 01/25/23 Ordered By: Ryan Ac/Other Patient Handouts: Acute Bronchitis, Using an Inhaler with a Spacer Admission Data Admit Date/Time: 01/24/23 02:08 Attending Provider: Ryan Blake Admit Provider: Melanie Ceja Primary Care Provider: Tania Murcia Other Providers: Hernesto Verma Coding Diagnoses
--- NOTE | 2023-01-26 06:34 | Electrocardiogram Report ---
Test Reason : Blood Pressure : / mmHG Vent. Rate : 067 BPM Atrial Rate : 067 BPM P-R Int : 118 ms QRS Dur : 106 ms QT Int : 438 ms P-R-T Axes : 070 085 079 degrees QTc Int : 462 ms Normal sinus rhythm Incomplete right bundle branch block Borderline ECG When compared with ECG of 22-MAR-2018 17:12, Incomplete right bundle branch block is now Present Confirmed by Jf Figueredo ([id number]) on 01/26/2023 6:33:56 AM Referred By: REFERRED SELF Confirmed By:Jf Figueredo
[2023-01-26 13:27] LABS: Anti Nuclear Antibody Screen POSITIVE (NEGATIVE); Rheumatoid Factor <14 IU/mL (<14)
[2023-01-27 12:12] LABS: ANA Pattern Nuclear, Speckled
== END 2023-01-25 18:17 | disposition home or self-care (01) ==
LOC: ED 20:25 → EDINP 20:25 → SUATTDRO 01-24 02:08 → EDINP 01-24 19:11 → 2W 01-24 19:43

== ENCOUNTER 2023-07-01 16:50 | Observation (INO) ==
--- NOTE | 2023-07-01 17:07 | Emergency Department Note ---
ED Provider Note History of Present Illness Chief Complaint: Animal Bite Stated Complaint: CAT BITE, REDNESS, SWELLING, RADIATING PAIN Time Seen by Provider: 07/01/23 17:06 This is a [id number] 63-year-old female accompanied by her who presents to the emergency department with worsening redness, pain, and warmth to her right hand, wrist, and forearm secondary to a cat bite that occurred 2 days ago. Patient was seen in this emergency department 2 days ago after being bitten by her cat who is up-to-date on rabies. She was seen in this emergency department several hours later and was placed on Augmentin. She has been taking this as prescribed and states that the symptoms are worsening, not improving. Earlier today she noted that the redness was right at her wrist crease and over the past few hours it has progressed onto her elbow. She has a lot of throbbing pain in time her arm is down, improved when she elevates it. She has a lot of pain when she moves her fingers especially her index finger and thumb. She also feels like her middle finger is still not working properly which she attributes to swelling in the top of the hand. She has not had any fevers or chills, has not noticed any red streaks traveling up her arm. She admits that she is not entirely sure when her last tetanus was updated. At that visit, hand x-ray was read as no fracture or foreign body. Patient has a history of being OLIVERIO positive however she is not on any immunosuppressive medications. Otherwise not immunocompromised. Denies any numbness or tingling in her fingers Home Medications Medication Instructions Recorded Confirmed Type multivitamin 1 tab PO QAM 12/16/18 07/01/23 History acetaminophen 500 mg tablet 500 mg PO QID PRN Pain 12/16/21 07/01/23 History ibuprofen 125 mg-acetaminophen 250 1 tab PO Q8H PRN Pain 12/16/21 07/01/23 History mg tablet (Advil Dual Action) lorazepam 0.5 mg tablet 0.5 mg PO DAILY PRN flight anxiety 02/23/22 07/01/23 Rx #5 tabs rosuvastatin 10 mg tablet 10 mg PO DAILY #90 tabs 07/29/22 07/01/23 Rx escitalopram oxalate 10 mg tablet 10 mg PO QAM #90 tabs 08/03/22 07/01/23 Rx hydrochlorothiazide 25 mg tablet 25 mg PO DAILY #90 tabs 11/05/22 07/01/23 Rx fluocinonide 0.05 % topical cream 1 applic topical DIRECTED PRN 04/20/23 07/01/23 History Skin Irritation telmisartan 20 mg tablet 20 mg PO DAILY #90 tabs 04/20/23 07/01/23 Rx levothyroxine 75 mcg tablet 75 mcg PO DAILY #30 tabs 04/23/23 07/01/23 Rx albuterol 90 mcg-budesonide 80 2 inh inhalation TID PRN shortness 06/01/23 07/01/23 Rx mcg/actuation HFA aerosol inhaler of breath #10.7 grams (Airsupra) fluticasone furoate 100 1 inh inhalation DAILY #60 ea 06/03/23 07/01/23 Rx mcg-vilanterol 25 mcg/dose inhalation powder (Breo Ellipta) amoxicillin 875 mg-potassium 1 tab PO BID 7 days #14 tabs 06/29/23 07/01/23 Rx clavulanate 125 mg tablet azithromycin 250 mg tablet 250 mg PO DAILY 4 days #4 tabs 06/29/23 07/01/23 Rx (Zithromax) Allergies Allergy/AdvReac Type Severity Reaction Status Date / Time No Known Allergies Allergy Verified 07/01/23 18:40 Past Med/Surg History Medical History OLIVERIO positive No history of OLIVERIO associated connective tissue disorder (03/26/2023) 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 S/p radioactive iodine ablation Surgical History Hx of tubal ligation History of ankle surgery History of esophagogastroduodenoscopy (EGD) Hx of colonoscopy History of arthroscopic knee surgery Left knee x 2 S/P thyroidectomy (12/05/13) Family History Uncle Hemochromatosis Father Hemochromatosis Osteoarthritis Prostate cancer Skin cancer Diabetes Alzheimer disease Brother Hemochromatosis Grandmother (Maternal) Leukemia Ovarian cancer Daughter Raynauds syndrome Systemic lupus erythematosus Sister Sjogren's syndrome Systemic lupus erythematosus Mother Breast cancer Mother Parkinsons disease Denies family history of Myocardial infarction Colorectal cancer Uterine cancer Social History Smoking Status: Never smoker Second Hand Exposure: No; Do You Dip or Chew Tobacco: No; Hx Alcohol Use: Yes Alcohol type: wine Hx Substance Use: No Preferred Language: Vietnamese Communication Ability: Effective Visual Impairment: No Limitations Hearing Ability: Normal 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 Beliefs That Will Affect Care: None marital status: Current Living Situation: Spouse Current Living Situation Comment: house current occupational status: retired Feels Safe at Home: Yes caffeine: Yes Dental Care, Regularly: Yes Seatbelt Use: always Sunscreen Use: Yes Assistive Devices: Glasses Physical Exam Vital Signs Vital Signs - 24 hr 07/01/23 17:02 Temperature 98.1 F Temperature Source Temporal Artery Scan Pulse Rate 86 Respiratory Rate 19 Blood Pressure 147/64 H Blood Pressure Mean 91 Pulse Oximetry 94 Oxygen Delivery Method Room Air Sepsis Recent Fever Within 48 Hours No Sepsis New/Unexplained Change in Mental Status N/A Sepsis Action Taken by Nursing No Action Required CONSTITUTIONAL: Well developed, well nourished, in no acute distress, pleasant. HEAD: Normocephalic, atraumatic. NECK: Full active range of motion. RESPIRATORY: Breathing unlabored and symmetric. CARDIOVASCULAR: Right radial pulse 2+. MUSCULOSKELETAL: Right upper extremity: There is soft tissue swelling, erythema, and tenderness from the dorsum of the hand extending across the wrist onto the distal forearm. This is not circumferential. There is no lymphatic streaking. There is pain elicited in the second digit with passive flexion at the MCP. No other pain elicited with passive range of motion of the digits, though range of motion of the wrist causes discomfort. SKIN: [place], warm, dry. There are 2 puncture wounds noted to the right hand. NEUROLOGIC: Awake, alert, oriented. No sensory deficits in bilateral fingers Course Consultations Consultation #1: Spoke with Dr. Laird (orthopedics on-call) regarding the case and a photo was sent to him through [place] text. He agrees admission is warranted, recommends IV antibiotics and request an MRI with and without contrast to evaluate for possible abscess. Recommend admission under the hospitalist group with Ortho consult Administered Medications Acetaminophen (Acetaminophen 325 Mg Tab) 650 mg PO Q4H PRN PRN Reason: pain(1-4),headache,fever Stop: 07/31/23 18:29 Last Admin: 07/01/23 22:12 Dose: 650 mg Documented By: ERIK Escitalopram Oxalate (Escitalopram Oxalate 10 Mg Tab) 10 mg PO QPM NHI Stop: 07/31/23 22:29 Last Admin: 07/01/23 23:20 Dose: 10 mg Documented By: ERIK Gadobutrol (Gadobutrol 30ml Vial) 7.5 ml IV ONCE ONE Stop: 07/02/23 02:17 Last Admin: 07/02/23 02:16 Dose: 7.5 ml Documented By: AUDI Ampicillin Sodium/Sulbactam Sodium 1,500 mg/ Sodium Chloride 100 mls @ 200 mls/hr IV Q6H NHI Stop: 07/09/23 00:00 Last Infusion: 07/02/23 01:08 Dose: Infused Documented By: Admin: 07/02/23 00:02 Dose: 200 mls/hr Documented By: ERIK Miscellaneous (Order Awaiting Action: Albuterol-Budesonide [Airsupra] 90-80 Mcg/Actuation Hfa Aerosol) 1 each N/A QS NHI Stop: 08/01/23 00:00 Last Admin: 07/02/23 00:05 Dose: Not Given Documented By: ERIK Rosuvastatin Calcium (Rosuvastatin Calcium 10 Mg Tab) 10 mg PO QPM NHI Stop: 07/31/23 23:14 Last Admin: 07/01/23 23:21 Dose: 10 mg Documented By: ERIK Discontinued Medications Diphenhydramine HCl (Diphenhydramine 50 Mg/Ml Vial) Confirm Administered Dose 50 mg .ROUTE .STK-MED ONE Stop: 07/01/23 21:05 Last Admin: 07/01/23 21:07 Dose: Not Given Documented By: ROSHAN Diphenhydramine HCl (Diphenhydramine 50 Mg/Ml Vial) 25 mg IV NOW STA Stop: 07/01/23 21:07 Last Admin: 07/01/23 21:07 Dose: 25 mg Documented By: ROSHAN Diphtheria/Pertussis/Tetanus Vacc (Diphther/Tetan/Pertus Vaccine (Tdap, Adol/Adult) 0.5ml) 0.5 ml IM .ONCE ONE Stop: 07/01/23 17:25 Last Admin: 07/01/23 17:28 Dose: 0.5 ml Documented By: MODESTA Sodium Chloride (Nss) 500 mls @ 999 mls/hr IV .Q31M ONE Stop: 07/01/23 17:50 Last Infusion: 07/01/23 19:02 Dose: Infused Documented By: Admin: 07/01/23 17:27 Dose: 999 mls/hr Documented By: MODESTA Ampicillin Sodium/Sulbactam Sodium 3,000 mg/ Sodium Chloride 100 mls @ 200 mls/hr IV NOW STA Stop: 07/01/23 17:53 Last Infusion: 07/01/23 19:02 Dose: Infused Documented By: Admin: 07/01/23 17:37 Dose: 200 mls/hr Documented By: MODESTA Vancomycin HCl 2,000 mg/ (Sodium Chloride) 540 mls @ 200 mls/hr IV ONE ONE Stop: 07/01/23 21:26 Last Infusion: 07/01/23 23:30 Dose: Infused Documented By: Infusion: 07/01/23 21:08 Dose: 100 mls/hr Documented By: Admin: 07/01/23 19:04 Dose: 200 mls/hr Documented By: JAZLYN Medical Decision Making Differential Diagnosis Foreign body, fracture, tendon injury, neurovascular injury, tenosynovitis, cellulitis, abscess, lymphangitis, sepsis, among other pathology Medical Records Attestation: I reviewed the patient's medical records. (Reviewed prior ED notes from 2 days ago. Negative x-ray at that time.) Laboratory Data 07/01/23 17:30 07/01/23 17:30 Lab Results 07/01/23 07/01/23 Range/Units 17:30 18:24 WBC 10.58 (4.8-10.8) K/ul RBC 4.74 (4.20-5.40) M/uL Hgb 14.6 (12.0-16.0) g/dl Hct 42.1 (37.0-47.0) % MCV 88.8 (80.0-100.0) fL MCH 30.8 (25.0-34.0) pg MCHC 34.7 (32.0-36.0) g/dL RDW Std Deviation 41.2 (36.4-46.3) fL RDW Coeff of Elsa 12.6 (11.5-14.5) % Plt Count 357 (130-400) K/uL MPV 9.9 (9.4-12.4) fL Immature Gran % (Auto) 0.3 % Neut % (Auto) 66.4 % Lymph % (Auto) 25.7 % [place] % (Auto) 6.0 % Eos % (Auto) 1.2 % Baso % (Auto) 0.4 % Neut # (Auto) 7.03 H (1.40-6.50) K/uL Lymph # (Auto) 2.72 (1.20-3.40) K/uL [place] # (Auto) 0.63 H (0.11-0.59) K/uL Eos # (Auto) 0.13 (0.00-0.50) K/uL Baso # (Auto) 0.04 (0.00-0.20) K/uL Immature Gran # (Auto) 0.03 (0.01-0.20) K/uL Sodium 138 (136-145) mmol/L Potassium 3.3 L (3.5-5.1) mmol/L Chloride 100 (98-107) mmol/L Carbon Dioxide 29 (21-32) mmol/L Anion Gap 9 (3-11) BUN 19 (6-23) mg/dl Creatinine 0.76 (0.6-1.2) mg/dl Est Cr Clr Drug Dosing 77.3 ml/min Est GFR ( Amer) 96.8 ml/min Est GFR (Non-Af Amer) 83.5 ml/min BUN/Creatinine Ratio 25.0 H (10-20) Glucose 95 (70-99(Fasting)) mg/dl Lactate 0.8 (0.4-2.0) mmol/L Calcium 9.0 (8.6-10.3) mg/dl Total Bilirubin 0.4 (0.2-1.0) mg/dl AST 20 (13-39) U/L ALT 23 (7-52) U/L Alkaline Phosphatase 70 (34-104) U/L Total Protein 7.6 (6.0-8.3) gm/dl Albumin 4.5 (3.4-5.0) gm/dl Globulin 3.1 (2.5-4.0) gm/dl Albumin/Globulin Ratio 1.5 (0.9-2) Procalcitonin 0.02 (0-0.5) ng/ml MDM Narrative [id number] 63-year-old female presents to the emergency department with worsening redness, swelling, and pain right hand wrist and forearm secondary to a cat bite to the right hand that occurred 2 days ago. She has been taking Augmentin as prescribed. See above for further details. Patient well-appearing in no acute distress. She does appear to be uncomfortable with her hand down, is elevating it above her heart. She has warmth, erythema, and soft tissue swelling with associated tenderness in the dorsum of the hand wrist and dorsal forearm. There is mild discomfort elicited in the index finger with passive flexion at the MCP joint, otherwise no obvious evidence of tenosynovitis. There is no lymphangitis. IV was inserted and labs were obtained. Patient was given a dose of Unasyn. Labs no leukocytosis or anemia. No thrombocytopenia. Mild hypokalemia at 3.3. No transaminitis. Procalcitonin normal. Lactate normal. Patient appears to have failed Augmentin therapy. Admission was recommended. She was agreeable. I called and spoke with Dr. Laird (orthopedics on-call) as described above who recommends IV antibiotics and an MRI with and without contrast, Ortho consult. Spoke with Dr. Bartlett (hospitalist, [facility]) who agrees to admit the patient. Case reviewed with ED attending Dr. Hawkins who is agreeable with this plan. Impression Cellulitis of hand, right, Cellulitis of right wrist, Cellulitis of right forearm, Cat bite of right hand Discharge Plan Visit Data Chief Complaint: Animal Bite Stated Complaint: CAT BITE, REDNESS, SWELLING, RADIATING PAIN ED Provider: Gabe Hawkins ED Midlevel Provider: Romulo Knapp Discharge Problem: Cellulitis of hand, right, Cellulitis of right wrist, Cellulitis of right forearm, Cat bite of right hand Patient Disposition: Admitted As Inpatient Condition: Fair Discharge Instructions Interventions: ED Discharge Assessment Last Done: 07/01/23 21:38 Discharge Problem: Cat bite of right hand Qualifiers: Encounter type: subsequent encounter Qualified Code(s): S61.451D - Open bite of right hand, subsequent encounter
[2023-07-01] MEDS: SODIUM CHLORIDE 0.9% 500 ML IV ONE (17:27)
[2023-07-01] MEDS: DIPHTHER/TETAN/PERTUS Vaccine (Tdap, Adol/Adult) 0.5mL IM ONE (17:28)
[2023-07-01] MEDS: AMPICILLIN/SULBACTAM SOD 3,000 MG in SODIUM CHLOR 0.9% MINI-B 100 ML IV STA (17:37)
[2023-07-01 17:50] LABS: Basophils # (auto) 0.04 K/uL (0.00-0.20); Basophils % (auto) 0.4 %; Eosinophils # (auto) 0.13 K/uL (0.00-0.50); Eosinophils % (auto) 1.2 %; Hematocrit (blood only) 42.1 % (37.0-47.0); Hemoglobin 14.6 g/dl (12.0-16.0); Immature Granulocytes # (auto) 0.03 K/uL (0.01-0.20); Immature Granulocytes % (auto) 0.3 %; Lymphocytes # (auto) 2.72 K/uL (1.20-3.40); Lymphocytes % (auto) 25.7 %; Mean Corpuscular Hemoglobin 30.8 pg (25.0-34.0); Mean Corpuscular Hgb Conc 34.7 g/dL (32.0-36.0); Mean Corpuscular Volume 88.8 fL (80.0-100.0); Mean Platelet Volume 9.9 fL (9.4-12.4); Monocytes # (auto) 0.63 K/uL (0.11-0.59); Neutrophils # (auto) 7.03 K/uL (1.40-6.50); Neutrophils % (auto) 66.4 %; Platelet Count 357 K/uL (130-400); RDW Coefficient of Variation 12.6 % (11.5-14.5); RDW Standard Deviation 41.2 fL (36.4-46.3); Red Blood Count 4.74 M/uL (4.20-5.40); White Blood Count 10.58 K/ul (4.8-10.8)
[2023-07-01 18:07] LABS: Albumin Globulin Ratio 1.5 (0.9-2); Albumin Level 4.5 gm/dl (3.4-5.0); Bilirubin,Total 0.4 mg/dl (0.2-1.0); Creatinine Clr Calc Pharmacy 77.3 ml/min; Est GFR (African American) 96.8 ml/min; Est GFR (Non-African American) 83.5 ml/min; Globulin 3.1 gm/dl (2.5-4.0); Potassium 3.3 mmol/L (3.5-5.1); Total Protein 7.6 gm/dl (6.0-8.3)
[2023-07-01] MEDS ORDERED: VANCOMYCIN CONSULT ACTIVE PRN (18:21)
[2023-07-01] MEDS ORDERED: MoRPHine SULFATE 2 MG/ML CARP IV PRN (18:30)
[2023-07-01] MEDS ORDERED: NALOXONE HCL 0.4 MG/1 ML VIAL/CARP IV PRN (18:57)
[2023-07-01] MEDS: VANCOMYCIN HCL 2,000 MG in SODIUM CHLORIDE 0.9% 500 ML IV ONE (19:04)
--- NOTE | 2023-07-01 19:31 | History & Physical Report ---
Date of Service July 01, 2023 Assessment & Plan (1) Cat bite of right hand: Plan: Assessment: 1. Cat bite right hand. Cat bite was on the dorsum of the hand evolved into a cellulitis and swelling of the right upper extremity. IV vancomycin and IV Unasyn. Blood cultures. MRI with and without contrast per orthopedics recommendation. Consult orthopedics Dr. Laird. Tetanus shots been delivered. 2. History of asthma/COPD without exacerbation. 3. History of hypertension continue home meds. 4. History of hypothyroidism. Continue home medications check level in the morning. 5. Dyslipidemia continue statin. Plan: As described above. Please refer to orders for further planning. History of Present Illness Chief Complaint: Right hand pain status post cat bite 48 hours ago. Primary Care Provider: Tania Murcia MD This is a pleasant 63-year-old female who got bit by her domestic feline approximately 48 hours ago she presented to the ER. She received oral antibiotics and discharged on Wednesday including azithromycin and Augmentin. Despite being compliant with the oral antibiotic regimen her pain and erythema and swelling worsened she [place] presents today for reevaluation. In the emergency department the patient's vital signs were unremarkable and stable. Laboratory studies were obtained she had a normal white blood cell count and a normal differential her CMP is essentially unremarkable as well. Her course in emergency department she received Unasyn. We are called admit the patient for cellulitis status post cat bite of the right upper extremity with failed outpatient antibiotic treatment. Upon accepted the patient for admission we ordered stat blood cultures. It is noted that the patient did receive a tetanus shot today. In addition we are adding vancomycin. Consultation was obtained with orthopedics from the ER provider Dr. Laird, who is recommending MRI of the extremity to rule out subcutaneous abscess. Test has been ordered and pending completion and result at the time of this dictation. Allergies Allergy/AdvReac Type Severity Reaction Status Date / Time No Known Allergies Allergy Verified 07/01/23 18:40 Home Medications Medication Instructions Recorded Confirmed Type multivitamin 1 tab PO QAM 12/16/18 07/01/23 History acetaminophen 500 mg tablet 500 mg PO QID PRN Pain 12/16/21 07/01/23 History ibuprofen 125 mg-acetaminophen 250 1 tab PO Q8H PRN Pain 12/16/21 07/01/23 History mg tablet (Advil Dual Action) lorazepam 0.5 mg tablet 0.5 mg PO DAILY PRN flight anxiety 02/23/22 07/01/23 Rx #5 tabs rosuvastatin 10 mg tablet 10 mg PO DAILY #90 tabs 07/29/22 07/01/23 Rx escitalopram oxalate 10 mg tablet 10 mg PO QAM #90 tabs 08/03/22 07/01/23 Rx hydrochlorothiazide 25 mg tablet 25 mg PO DAILY #90 tabs 11/05/22 07/01/23 Rx fluocinonide 0.05 % topical cream 1 applic topical DIRECTED PRN 04/20/23 07/01/23 History Skin Irritation telmisartan 20 mg tablet 20 mg PO DAILY #90 tabs 04/20/23 07/01/23 Rx levothyroxine 75 mcg tablet 75 mcg PO DAILY #30 tabs 04/23/23 07/01/23 Rx albuterol 90 mcg-budesonide 80 2 inh inhalation TID PRN shortness 06/01/23 07/01/23 Rx mcg/actuation HFA aerosol inhaler of breath #10.7 grams (Airsupra) fluticasone furoate 100 1 inh inhalation DAILY #60 ea 06/03/23 07/01/23 Rx mcg-vilanterol 25 mcg/dose inhalation powder (Breo Ellipta) amoxicillin 875 mg-potassium 1 tab PO BID 7 days #14 tabs 06/29/23 07/01/23 Rx clavulanate 125 mg tablet azithromycin 250 mg tablet 250 mg PO DAILY 4 days #4 tabs 06/29/23 07/01/23 Rx (Zithromax) Past Med/Surg History Medical History OLIVERIO positive No history of OLIVERIO associated connective tissue disorder (03/26/2023) 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 S/p radioactive iodine ablation Surgical History Hx of tubal ligation History of ankle surgery History of esophagogastroduodenoscopy (EGD) Hx of colonoscopy History of arthroscopic knee surgery Left knee x 2 S/P thyroidectomy (12/05/13) Family History Uncle Hemochromatosis Father Hemochromatosis Osteoarthritis Prostate cancer Skin cancer Diabetes Alzheimer disease Brother Hemochromatosis Grandmother (Maternal) Leukemia Ovarian cancer Daughter Raynauds syndrome Systemic lupus erythematosus Sister Sjogren's syndrome Systemic lupus erythematosus Mother Breast cancer Mother Parkinsons disease Denies family history of Myocardial infarction Colorectal cancer Uterine cancer Social History Smoking Status: Never smoker Second Hand Exposure: No; Do You Dip or Chew Tobacco: No; Hx Alcohol Use: Yes Alcohol type: wine Hx Substance Use: No Preferred Language: Kazakh Communication Ability: Effective Visual Impairment: No Limitations Hearing Ability: Normal Technology Internship Required: No Beliefs That Will Affect Care: None marital status: Current Living Situation: Spouse current occupational status: retired Feels Safe at Home: Yes caffeine: Yes Dental Care, Regularly: Yes Seatbelt Use: always Sunscreen Use: Yes Assistive Devices: None Review of Systems Review of Systems: A 10 point review of system was obtained and unless otherwise stated here or in history of present illness are negative and noncontributory to chief complaint. Physical Exam Physical Exam: In General: In general is a pleasant 63-year-old female is alert and oriented x 3 at time my exam she interacts appropriately and pleasantly. She appears to be in mild discomfort with her right upper extremity wound. HEENT: Normocephalic atraumatic pupils are equal round and reactive to light bilaterally. No scleral icterus no conjunctival injection external auditory canals are patent septum is in the midline nose is without discharge oral mucosa is pink and moist without lesion. NECK: Supple no rigidity no lymphadenopathy no thyromegaly no carotid bruits no JVD no masses. HEART: Regular rate and rhythm I do not appreciate any ectopy or rub. No murmur. LUNGS: Clear to auscultation bilaterally and anteriorly with no evidence of adventitious sounds/wheezes rales or rhonchi. ABDOMEN: Soft nontender, no rebound, no peritoneal signs, positive bowel sounds, no appreciable organomegaly. EXTREMITIES: Intact, peripheral pulses palpable equal x 4. Her right upper extremity the dorsum of her hand extending approximately 3-1/2 inches proximal through the wrist region is erythematous. She has it outlined with ink pen where the erythema was yesterday versus today it has progressed approximately an additional 50%. It is warm to the touch. It is painful to the touch. She has limited range of motion of the wrist and hand. NEUROLOGICAL: Cranial nerves II through XII are grossly intact with no focal deficit elicited upon examination. No tremor. Results & Data Results & Data Vital Signs (Past 12 Hours) Vital Signs Temp Pulse Resp BP Pulse Ox O2 Del Method 07/01/23 17:02 36.7 C 86 19 147/64 H 94 Room Air Code Status & VTE Plan Code Status CODE STATUS-full code. VTE Prophylaxis Plan VTE Prophylaxis will be ordered: Yes PG Care Time/CCT Total # of Minutes Spent Total Time Spent with Patient: Total time spent is greater than 50% in coordination of care (as documented) at patient's floor/unit and/or counseling patient: Coding Level of Care Code 56140 INT INP/OBS CARE 3/75MIN Diagnoses Cat bite of right hand S61.451D; W55.01XD Encounter type: subsequent encounter (1) Cat bite of right hand Encounter type: subsequent encounter Qualified Code(s): S61.451D - Open bite of right hand, subsequent encounter; W55.01XD - Bitten by cat, subsequent encounter
[2023-07-01] MEDS: diphenhydrAMINE 50 MG/ML VIAL ONE (21:07)
[2023-07-01] MEDS: diphenhydrAMINE 50 MG/ML VIAL IV STA (21:07)
[2023-07-01] MEDS: ACETAMINOPHEN 325 MG TAB PO PRN (22:12)
[2023-07-01] MEDS ORDERED: ROSUVASTATIN CALCIUM 10 MG TAB PO SCH (22:30)
[2023-07-01] MEDS: ESCITALOPRAM OXALATE 10 MG TAB PO SCH (23:20)
[2023-07-01] MEDS: ROSUVASTATIN CALCIUM 10 MG TAB PO SCH (23:21)
[2023-07-02] MEDS: AMPICILLIN SOD/SULBACTAM SOD 1,500 MG in SODIUM CHLOR 0.9% MINI-B 100 ML IV SCH (00:02)
[2023-07-02] MEDS: GADOBUTROL 30ML VIAL IV ONE (02:16)
[2023-07-02] MEDS: diphenhydrAMINE 50 MG/ML VIAL IV PRN (05:22)
[2023-07-02] MEDS: VANCOMYCIN HCL 1,000 MG in SODIUM CHLORIDE 0.9% 250 ML IV SCH (05:22)
[2023-07-02] MEDS: LEVOTHYROXINE SODIUM 75 MCG TABLET PO SCH (05:49)
--- NOTE | 2023-07-02 05:52 | Magnetic Resonance Report ---
Exam(s): MRI RIGHT HAND W/WO Contrast IV Amt: 7.5cc gadavist EXAM: MR Right Upper Extremity Without and With Intravenous Contrast, Hand CLINICAL HISTORY: cat bite, monitor for abscess. TECHNIQUE: Multiplanar magnetic resonance images of the right hand without and with intravenous contrast. CONTRAST: Patient received 7.5cc gadavist of IV contrast COMPARISON: Hand radiographs 06/29/2023. FINDINGS: Bones/joints: Unremarkable. Soft tissues: Nonspecific subcutaneous edema and is prominence of the dorsum of the hand without organized fluid collection to suggest abscess. IMPRESSION: Nonspecific subcutaneous edema and is prominence of the dorsum of the hand without organized fluid collection to suggest abscess. Electronically signed by: Beulah Robles MD 07/02/23 05:51 AM
[2023-07-02 06:18] LABS: Basophils # (auto) 0.03 K/uL (0.00-0.20); Basophils % (auto) 0.4 %; Eosinophils % (auto) 2.5 %; Hematocrit (blood only) 37.5 % (37.0-47.0); Hemoglobin 13.5 g/dl (12.0-16.0); Immature Granulocytes # (auto) 0.02 K/uL (0.01-0.20); Immature Granulocytes % (auto) 0.2 %; Lymphocytes # (auto) 2.69 K/uL (1.20-3.40); Lymphocytes % (auto) 33.1 %; Mean Corpuscular Hemoglobin 31.8 pg (25.0-34.0); Mean Corpuscular Volume 88.4 fL (80.0-100.0); Mean Platelet Volume 10.1 fL (9.4-12.4); Monocytes # (auto) 0.52 K/uL (0.11-0.59); Monocytes % (auto) 6.4 %; Neutrophils # (auto) 4.67 K/uL (1.40-6.50); Neutrophils % (auto) 57.4 %; Platelet Count 304 K/uL (130-400); RDW Coefficient of Variation 12.8 % (11.5-14.5); RDW Standard Deviation 41.4 fL (36.4-46.3); Red Blood Count 4.24 M/uL (4.20-5.40); White Blood Count 8.13 K/ul (4.8-10.8)
[2023-07-02 06:43] LABS: Albumin Globulin Ratio 1.5 (0.9-2); Albumin Level 3.7 gm/dl (3.4-5.0); BUN Creatinine Ratio 18.6 (10-20); Bilirubin,Total 0.6 mg/dl (0.2-1.0); Creatinine Clr Calc Pharmacy 83.3 ml/min; Est GFR (African American) 106.9 ml/min; Est GFR (Non-African American) 92.2 ml/min; Globulin 2.5 gm/dl (2.5-4.0); Magnesium 1.8 mg/dl (1.7-2.4); Potassium 3.5 mmol/L (3.5-5.1); Total Protein 6.2 gm/dl (6.0-8.3)
[2023-07-02 06:52] LABS: Prothrombin Time 10.9 Seconds (9.0-12.0)
[2023-07-02] MEDS: hydroCHLOROthiazide 25 MG TAB PO SCH (08:52)
[2023-07-02] MEDS: LOSARTAN POTASSIUM 25 MG TAB PO SCH (08:52)
[2023-07-02] MEDS: FLUTICASONE/VILANTEROL 100/25MCG 14 PUFFS/INHALER INH SCH (08:53)
[2023-07-02] MEDS ORDERED: ESCITALOPRAM OXALATE 10 MG TAB PO SCH (09:00)
[2023-07-02] MEDS ORDERED: ROSUVASTATIN CALCIUM 10 MG TAB PO SCH (09:00)
--- NOTE | 2023-07-02 09:24 | Pharmacy Report ---
Pharmacy PK ABX Note - Date of Service July 02, 2023 - Assessment and Plan Assessment 63 year old F started on vancomycin and unasyn for cat bit. Previously on augmentin/azithromycin outpatient and hand worsening. Blood cultures x 2 pending. Hand MRI negative for abscess. Plan Vancomycin * Loading dose: 2000 mg IV x 1 * Maintenance dose: 1000 mg IV every 12 hours * Regimen is predicted to achieve target AUC/NABOR of 400-600 mg/L.hr * Plan to order vancomycin level if continued > 48 hours or sooner if renal function changes. Pharmacy will continue to follow and will adjust dose/frequency as necessary. Thank you. Pharmacy has transitioned to AUC monitoring for vancomycin. AUC/NABOR is the preferred PK/PD target and is associated with decreased risk of nephrotoxicity compared to traditional trough targets.
--- NOTE | 2023-07-02 09:56 | Hospitalist Progress Note ---
Date of Service July 02, 2023 Assessment & Plan (1) Cat bite of right hand: Plan: Patient seen in ER 06/28 and sent home on Augmentin BID with progressive swelling of hand into right upper extremity On admission, WBC borderline w/ L shift. Procal 0.02 Given Unasyn, Vancomycin, tetanus shot in ER MRI w/w/o contrast: Nonspecific subcutaneous edema and is prominence of the dorsum of the hand without organized fluid collection to suggest abscess. Continue Unasyn, Vancomycin IV WBC 8.1k on repeat, afebrile Blood cultures pending - NGTD and monitoring Pain control -- continue tylenol, morphine but added Oxycodone prn as having pain and she did not feel needed morphine and tolerated oxycodone in the past Monitor erythema -- SIGNIFICANTLY improved Encouraged continued elevation above the level of the heart Orthopedics consulted, Dr Laird -- to see this afternoon, appreciate recs/assistance but suspect no intervention and continue abx per discussion ?Consider Bactrim/flagyl at dc to better cover for MRSA as not covered by [facility] but also anaerobic bacteria given cat bite Monitor labs on repeat, f/u blood cultures (2) Primary hypertension: Plan: Chronic, stable 117/68 Continue home telmisartan/hospital equivalent, HCTZ 25mg daily (3) Hyperlipidemia: Plan: chronic, stable continue home crestor (4) Hx of thyroid cancer: Plan: Thyroidectomy (2013) due to suspicious thyroid nodule that 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 S/p radioactive iodine ablation TSH wnl on check, continue home Synthroid 75mcg daily Other chronic medical problems History of asthma/COPD without exacerbation. -- 97% on RA, lungs clear -- continue home meds Depression - chronic, stable. continue home escitalopram 10mg daily Plan continued inpatient stay, ortho consult pending possible dc home 07/02 on PO abx pending continued improvement if bcx remain ngtd Admission and Anticipated Discharge Date Admission Date: July 01, 2023 Supervising Physician Co-Signing Physician Notes The patient was not seen by me. The chart was reviewed. Case discussed with KATARINA Cha. Agree with assessment and plan Subjective Eval this morning, sitting up in the chair. Reports pain to dorsum of her hand but not as tender to touch. Prior erythema marking up to her forearm, had worsened from home initially on admission after dc and taking couple days PO Augmentin. Her daughter is doctor of veterinary medicine and she called to ask what to do and told her to come in. Has two puncture sites to dorsum of her hand, one in middle and one off towards her thumb. Currently erythema MUCH improved. Improvement in mobility of her hand but unable to make a fist and issues with flexion of fingers, worse to her middle finger on right hand. Discussed pain control -- got 1 dose tylenol, does not feel needs morphine. Added oxycodone as reports tolerated in past and asked nursing to provide. Instructed to keep hand at least to level of the heart. She notes if she puts it dependent the pain does increase. Not yet seen by orthopedics but discussed imaging without evidence for abscess and hopefully caught in time and able to avoid any need for surgery but instructed to alert nursing if redness returns/worsens/spreads or worsened movement of her fingers but will continue IV abx and await orthopedics evaluation. Denies any fever/chills, no chest pain or shortness of breath. Appetite ok. Questions/concerns addressed at this time. Physical Exam Physical Exam: General: 63yo female sitting up in chair at window, NAD but having some mild-mod discomfort to her hand, hasn't gotten anything for pain Head atraumatic, normocephalic, mmm, trachea midline Resp; even/unlabored, no w/c/r, on room air CV: RRR, no significant m/r/g, no pitting LE edema GI: +BS, soft/NT ; no guerrier MSK/Neuro: RIGHT hand with slight edema, significant decreased edema per report and receded from marking, +tenderness to touch, slight warmth, no drainage from 2 punctures from cat bite (dorsum of hand and towards her thumb medially) able to wiggle fingers but not make a first, difficulty with flexion of middle finger on right hand, slight edema to fingers improvement in flexion/extension of her wrist but still not back to baseline radial pulse palpable no lymphangitic streaking Psych: AOx3, cooperative with exam Results & Data Results & Data Vital Signs (Past 12 Hours) Vital Signs Temp Pulse Resp BP Pulse Ox O2 Del Method 07/02/23 07:56 36.5 C 76 18 117/68 97 Room Air 07/01/23 21:57 36.8 C 77 18 125/81 98 Room Air Laboratory Results 07/02/23 07/01/23 07/01/23 Range/Units 05:32 18:24 17:30 WBC 8.13 10.58 (4.8-10.8) K/ul RBC 4.24 4.74 (4.20-5.40) M/uL Hgb 13.5 14.6 (12.0-16.0) g/dl Hct 37.5 42.1 (37.0-47.0) % MCV 88.4 88.8 (80.0-100.0) fL MCH 31.8 30.8 (25.0-34.0) pg MCHC 36.0 34.7 (32.0-36.0) g/dL RDW Std Deviation 41.4 41.2 (36.4-46.3) fL RDW Coeff of Elsa 12.8 12.6 (11.5-14.5) % Plt Count 304 357 (130-400) K/uL MPV 10.1 9.9 (9.4-12.4) fL Immature Gran % (Auto) 0.2 0.3 % Neut % (Auto) 57.4 66.4 % Lymph % (Auto) 33.1 25.7 % [place] % (Auto) 6.4 6.0 % Eos % (Auto) 2.5 1.2 % Baso % (Auto) 0.4 0.4 % Neut # (Auto) 4.67 7.03 H (1.40-6.50) K/uL Lymph # (Auto) 2.69 2.72 (1.20-3.40) K/uL [place] # (Auto) 0.52 0.63 H (0.11-0.59) K/uL Eos # (Auto) 0.20 0.13 (0.00-0.50) K/uL Baso # (Auto) 0.03 0.04 (0.00-0.20) K/uL Immature Gran # (Auto) 0.02 0.03 (0.01-0.20) K/uL PT 10.9 (9.0-12.0) Seconds INR 1.0 (0.9-1.1) Sodium 141 138 (136-145) mmol/L Potassium 3.5 3.3 L (3.5-5.1) mmol/L Chloride 107 100 (98-107) mmol/L Carbon Dioxide 27 29 (21-32) mmol/L Anion Gap 7 9 (3-11) BUN 13 19 (6-23) mg/dl Creatinine 0.70 0.76 (0.6-1.2) mg/dl Est Cr Clr Drug Dosing 83.3 77.3 ml/min Est GFR ( Amer) 106.9 96.8 ml/min Est GFR (Non-Af Amer) 92.2 83.5 ml/min BUN/Creatinine Ratio 18.6 25.0 H (10-20) Glucose 98 95 (70-99(Fasting)) mg/dl Lactate 0.8 (0.4-2.0) mmol/L Calcium 8.0 L 9.0 (8.6-10.3) mg/dl Magnesium 1.8 (1.7-2.4) mg/dl Total Bilirubin 0.6 0.4 (0.2-1.0) mg/dl AST 16 20 (13-39) U/L ALT 17 23 (7-52) U/L Alkaline Phosphatase 49 70 (34-104) U/L Total Protein 6.2 7.6 (6.0-8.3) gm/dl Albumin 3.7 4.5 (3.4-5.0) gm/dl Globulin 2.5 3.1 (2.5-4.0) gm/dl Albumin/Globulin Ratio 1.5 1.5 (0.9-2) Procalcitonin 0.02 (0-0.5) ng/ml Diagnostic Findings Hand MRI 07/02/23 02:12 Exam(s): MRI RIGHT HAND W/WO Contrast IV Amt: 7.5cc gadavist EXAM: MR Right Upper Extremity Without and With Intravenous Contrast, Hand CLINICAL HISTORY: cat bite, monitor for abscess. TECHNIQUE: Multiplanar magnetic resonance images of the right hand without and with intravenous contrast. CONTRAST: Patient received 7.5cc gadavist of IV contrast COMPARISON: Hand radiographs 06/29/2023. FINDINGS: Bones/joints: Unremarkable. Soft tissues: Nonspecific subcutaneous edema and is prominence of the dorsum of the hand without organized fluid collection to suggest abscess. IMPRESSION: Nonspecific subcutaneous edema and is prominence of the dorsum of the hand without organized fluid collection to suggest abscess. Electronically signed by: Beulah Robles MD 07/02/23 05:51 AM PG Care Time/CCT Total # of Minutes Spent Total Time Spent with Patient: Total time spent is greater than 50% in coordination of care (as documented) at patient's floor/unit and/or counseling patient: Coding Level of Care Code 42745 SUB INP/OBS CARE 3/50MIN Diagnoses Cat bite of right hand S61.451D; W55.01XD Encounter type: subsequent encounter Primary hypertension I10 Hyperlipidemia E78.5 Hx of thyroid cancer Z85.850 (1) Cat bite of right hand Encounter type: subsequent encounter Qualified Code(s): S61.451D - Open bite of right hand, subsequent encounter; W55.01XD - Bitten by cat, subsequent encounter
[2023-07-02] MEDS: oxyCODONE HCL IR 5 MG TAB (IMMEDIATE RELEASE) PO PRN (10:22)
--- NOTE | 2023-07-02 16:02 | Orthopedic Consultation ---
Date of Consultation July 02, 2023 Assessment & Plan (1) Cat bite of right hand: 63-year-old female with right hand dorsal cat bite Antibiotic therapy Pain control Medical management Elevate right upper extremity Reviewed patient MRI with her there is no evidence of abscess or fluctuance present. No concern for tenosynovitis. She has significant proved since yesterday. Would recommend an additional dose or 2 of IV antibiotics and transition to oral antibiotics. No further orthopedic intervention at this time. Patient may follow-up as an outpatient after discharge as needed. Orthopedics will sign off History of Present Illness Reason for Consultation: Right hand cat hand Attending Physician: Saurav Ward MD History of Present Illness 63-year-old female presenting with several day history of right hand pain after being bitten by a cat. She did try oral antibiotics as an outpatient for several days and did not note any significant improvement. She presented to the emergency department with some mild erythema overlying the dorsal of her left hand and distal forearm. She notes this pain overlying her wrist. She is admitted to medical service and orthopedics was consulted for evaluation. Allergies Allergy/AdvReac Type Severity Reaction Status Date / Time No Known Allergies Allergy Verified 07/01/23 18:40 Home Medications Medication Instructions Recorded Confirmed Type multivitamin 1 tab PO QAM 12/16/18 07/01/23 History acetaminophen 500 mg tablet 500 mg PO QID PRN Pain 12/16/21 07/01/23 History ibuprofen 125 mg-acetaminophen 250 1 tab PO Q8H PRN Pain 12/16/21 07/01/23 History mg tablet (Advil Dual Action) lorazepam 0.5 mg tablet 0.5 mg PO DAILY PRN flight anxiety 02/23/22 07/01/23 Rx #5 tabs rosuvastatin 10 mg tablet 10 mg PO DAILY #90 tabs 07/29/22 07/01/23 Rx escitalopram oxalate 10 mg tablet 10 mg PO QAM #90 tabs 08/03/22 07/01/23 Rx hydrochlorothiazide 25 mg tablet 25 mg PO DAILY #90 tabs 11/05/22 07/01/23 Rx fluocinonide 0.05 % topical cream 1 applic topical DIRECTED PRN 04/20/23 07/01/23 History Skin Irritation telmisartan 20 mg tablet 20 mg PO DAILY #90 tabs 04/20/23 07/01/23 Rx levothyroxine 75 mcg tablet 75 mcg PO DAILY #30 tabs 04/23/23 07/01/23 Rx albuterol 90 mcg-budesonide 80 2 inh inhalation TID PRN shortness 06/01/23 07/01/23 Rx mcg/actuation HFA aerosol inhaler of breath #10.7 grams (Airsupra) fluticasone furoate 100 1 inh inhalation DAILY #60 ea 06/03/23 07/01/23 Rx mcg-vilanterol 25 mcg/dose inhalation powder (Breo Ellipta) amoxicillin 875 mg-potassium 1 tab PO BID 7 days #14 tabs 06/29/23 07/01/23 Rx clavulanate 125 mg tablet azithromycin 250 mg tablet 250 mg PO DAILY 4 days #4 tabs 06/29/23 07/01/23 Rx (Zithromax) Patient History Medical History (Updated 07/02/23 @ 09:58 by Leeanna Maradiaga PA-C) Hx of thyroid cancer Thyroidectomy (2013) due to suspicious thyroid nodule that 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 Managed with supplemental levothyroxine Primary hypertension Hyperlipidemia no meds, diet controlled History of COVID-19 12/01/21, pcr test [facility] and home test, not hosp; sore throat, fatigue, "overall not feeling well">"still has sore throat" Hypertension History of anxiety Generalized anxiety disorder with panic attacks Surgical History Hx of tubal ligation History of ankle surgery History of esophagogastroduodenoscopy (EGD) Hx of colonoscopy History of arthroscopic knee surgery Left knee x 2 S/P thyroidectomy (12/05/13) Family History Uncle Hemochromatosis Father Hemochromatosis Osteoarthritis Prostate cancer Skin cancer Diabetes Alzheimer disease Brother Hemochromatosis Grandmother (Maternal) Leukemia Ovarian cancer Daughter Raynauds syndrome Systemic lupus erythematosus Sister Sjogren's syndrome Systemic lupus erythematosus Mother Breast cancer Mother Parkinsons disease Denies family history of Myocardial infarction Colorectal cancer Uterine cancer Social History Smoking Status: Never smoker Second Hand Exposure: No; Do You Dip or Chew Tobacco: No; Hx Alcohol Use: Yes Alcohol type: wine Hx Substance Use: No Preferred Language: Upper Sorbian Communication Ability: Effective Visual Impairment: No Limitations Hearing Ability: Normal Conciliation Court Judge Required: No Beliefs That Will Affect Care: None marital status: Current Living Situation: Spouse Current Living Situation Comment: house current occupational status: retired Feels Safe at Home: Yes caffeine: Yes Dental Care, Regularly: Yes Seatbelt Use: always Sunscreen Use: Yes Assistive Devices: None Physical Exam Constitutional: NAD, AAOx3 - puncture wound overlying the dorsum of the hand, no fluctuance, minimal erythema - no tenderness over flexor tendons, no pain w/ wrist ROM, tolerates gentle ROM of digits - silt srad/med/uln - fires epl/edc/fpl/fdp/fds/[facility] + rad Results & Data Vital Signs (Past 12 Hours) Vital Signs Temp Pulse Resp BP Pulse Ox O2 Del Method 07/02/23 15:15 36.6 C 76 16 108/71 97 Room Air 07/02/23 07:56 36.5 C 76 18 117/68 97 Room Air (1) Cat bite of right hand Encounter type: subsequent encounter Qualified Code(s): S61.451D - Open bite of right hand, subsequent encounter; W55.01XD - Bitten by cat, subsequent encounter
[2023-07-03] MEDS ORDERED: VANCOMYCIN LEVEL ONE (04:00)
[2023-07-03 06:24] LABS: Basophils # (auto) 0.04 K/uL (0.00-0.20); Basophils % (auto) 0.4 %; Eosinophils # (auto) 0.24 K/uL (0.00-0.50); Eosinophils % (auto) 2.7 %; Hematocrit (blood only) 38.4 % (37.0-47.0); Hemoglobin 13.5 g/dl (12.0-16.0); Immature Granulocytes # (auto) 0.02 K/uL (0.01-0.20); Immature Granulocytes % (auto) 0.2 %; Lymphocytes # (auto) 2.94 K/uL (1.20-3.40); Lymphocytes % (auto) 32.6 %; Mean Corpuscular Hgb Conc 35.2 g/dL (32.0-36.0); Mean Corpuscular Volume 88.3 fL (80.0-100.0); Mean Platelet Volume 10.1 fL (9.4-12.4); Monocytes # (auto) 0.57 K/uL (0.11-0.59); Monocytes % (auto) 6.3 %; Neutrophils % (auto) 57.8 %; Platelet Count 328 K/uL (130-400); RDW Coefficient of Variation 12.4 % (11.5-14.5); RDW Standard Deviation 40.2 fL (36.4-46.3); Red Blood Count 4.35 M/uL (4.20-5.40); White Blood Count 9.01 K/ul (4.8-10.8)
[2023-07-03 06:34] LABS: Albumin Globulin Ratio 1.5 (0.9-2); BUN Creatinine Ratio 13.8 (10-20); Bilirubin,Total 0.5 mg/dl (0.2-1.0); Calcium 8.7 mg/dl (8.6-10.3); Creatinine Clr Calc Pharmacy 72.9 ml/min; Est GFR (African American) 90.9 ml/min; Est GFR (Non-African American) 78.5 ml/min; Globulin 2.7 gm/dl (2.5-4.0); Magnesium 1.9 mg/dl (1.7-2.4); Potassium 3.9 mmol/L (3.5-5.1); Total Protein 6.7 gm/dl (6.0-8.3)
--- NOTE | 2023-07-03 08:49 | Hospitalist Progress Note ---
Date of Service July 03, 2023 Assessment & Plan (1) Cat bite of right hand: Plan: Patient seen in ER 06/28 and sent home on Augmentin BID with progressive swelling of hand into right upper extremity On admission, WBC borderline w/ L shift. Procal 0.02 Given Unasyn, Vancomycin, tetanus shot in ER MRI w/w/o contrast: Nonspecific subcutaneous edema and is prominence of the dorsum of the hand without organized fluid collection to suggest abscess. Continue Unasyn, Vancomycin IV WBC 8.1k on repeat, afebrile Blood cultures pending - NGTD and monitoring Pain control -- continue tylenol, morphine but added Oxycodone prn as having pain and she did not feel needed morphine and tolerated oxycodone in the past Monitor erythema -- SIGNIFICANTLY improved Encouraged continued elevation above the level of the heart Orthopedics consulted, Dr Laird -- to see this afternoon, appreciate recs/assistance but suspect no intervention and continue abx per discussion ?Consider Bactrim/flagyl at dc to better cover for MRSA as not covered by [facility] but also anaerobic bacteria given cat bite Monitor labs on repeat, f/u blood cultures 07/02 WBC wnl, afebrile. 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 S/p radioactive iodine ablation TSH wnl on check, continue home Synthroid 75mcg daily Other chronic medical problems History of asthma/COPD without exacerbation. -- 97% on RA, lungs clear -- continue home meds Depression - chronic, stable. continue home escitalopram 10mg daily Plan continued inpatient stay, ortho consult pending possible dc home 07/02 on PO abx pending continued improvement if bcx remain ngtd Admission and Anticipated Discharge Date Admission Date: July 01, 2023 Results & Data Results & Data Vital Signs (Past 12 Hours) Vital Signs Temp Pulse Resp BP Pulse Ox O2 Del Method 07/03/23 07:59 36.6 C 78 16 99/62 L 98 Room Air PG Care Time/CCT Total # of Minutes Spent Total Time Spent with Patient: Total time spent is greater than 50% in coordination of care (as documented) at patient's floor/unit and/or counseling patient: Coding Diagnoses Cat bite of right hand S61.451D; W55.01XD Encounter type: subsequent encounter Primary hypertension I10 Hyperlipidemia E78.5 Hx of thyroid cancer Z85.850 (1) Cat bite of right hand Encounter type: subsequent encounter Qualified Code(s): S61.451D - Open bite of right hand, subsequent encounter; W55.01XD - Bitten by cat, subsequent encounter
--- NOTE | 2023-07-03 09:22 | Discharge Summary ---
Date of Service July 03, 2023 Admission HPI Per Admitting Provider This is a pleasant 63-year-old female who got bit by her domestic feline approximately 48 hours ago she presented to the ER. She received oral antibiotics and discharged on Wednesday including azithromycin and Augmentin. Despite being compliant with the oral antibiotic regimen her pain and erythema and swelling worsened she Noble presents today for reevaluation. In the emergency department the patient's vital signs were unremarkable and stable. Laboratory studies were obtained she had a normal white blood cell count and a normal differential her CMP is essentially unremarkable as well. Her course in emergency department she received Unasyn. We are called admit the patient for cellulitis status post cat bite of the right upper extremity with failed outpatient antibiotic treatment. Upon accepted the patient for admission we ordered stat blood cultures. It is noted that the patient did receive a tetanus shot today. In addition we are adding vancomycin. Consultation was obtained with orthopedics from the ER provider Dr. Laird, who is recommending MRI of the extremity to rule out subcutaneous abscess. Test has been ordered and pending completion and result at the time of this dictation. Admission Exam Per Admitting Provider In General: In general is a pleasant 63-year-old female is alert and oriented x 3 at time my exam she interacts appropriately and pleasantly. She appears to be in mild discomfort with her right upper extremity wound. HEENT: Normocephalic atraumatic pupils are equal round and reactive to light bilaterally. No scleral icterus no conjunctival injection external auditory canals are patent septum is in the midline nose is without discharge oral mucosa is pink and moist without lesion. NECK: Supple no rigidity no lymphadenopathy no thyromegaly no carotid bruits no JVD no masses. HEART: Regular rate and rhythm I do not appreciate any ectopy or rub. No murmur. LUNGS: Clear to auscultation bilaterally and anteriorly with no evidence of adventitious sounds/wheezes rales or rhonchi. ABDOMEN: Soft nontender, no rebound, no peritoneal signs, positive bowel sounds, no appreciable organomegaly. EXTREMITIES: Intact, peripheral pulses palpable equal x 4. Her right upper extremity the dorsum of her hand extending approximately 3-1/2 inches proximal through the wrist region is erythematous. She has it outlined with ink pen where the erythema was yesterday versus today it has progressed approximately an additional 50%. It is warm to the touch. It is painful to the touch. She has limited range of motion of the wrist and hand. NEUROLOGICAL: Cranial nerves II through XII are grossly intact with no focal deficit elicited upon examination. No tremor. Principal Diagnosis Cat Bite, Cellulitis, Failure of outpatient antibiotics Discharge Exam General: 63yo female resting in bed, NAD, appears improved Head atraumatic, normocephalic, mmm, trachea midline Resp; even/unlabored, no w/c/r, on room air CV: RRR, no significant m/r/g, no pitting LE edema GI: +BS, soft/NT ; no guerrier MSK/Neuro: RIGHT hand with slight edema MUCH improved, almost COMPLETE resolution in erythema, puncture sites noted as previous/no active drainage improvement in ROM of fingers/flexion, able to make a fist today, pulses palpable no lymphangitic streaking Psych: AOx3, cooperative with exam, ready for discharge Discharge Data Allergies Allergy/AdvReac Type Severity Reaction Status Date / Time No Known Allergies Allergy Verified 07/01/23 18:40 Consultations 07/01/23 18:22 ED Decision to Admit Stat 07/01/23 18:24 Consult Orthopedic Surgery Routine Ordered Studies Hand MRI 07/02/23 02:12 Exam(s): MRI RIGHT HAND W/WO Contrast IV Amt: 7.5cc gadavist EXAM: MR Right Upper Extremity Without and With Intravenous Contrast, Hand CLINICAL HISTORY: cat bite, monitor for abscess. TECHNIQUE: Multiplanar magnetic resonance images of the right hand without and with intravenous contrast. CONTRAST: Patient received 7.5cc gadavist of IV contrast COMPARISON: Hand radiographs 06/29/2023. FINDINGS: Bones/joints: Unremarkable. Soft tissues: Nonspecific subcutaneous edema and is prominence of the dorsum of the hand without organized fluid collection to suggest abscess. IMPRESSION: Nonspecific subcutaneous edema and is prominence of the dorsum of the hand without organized fluid collection to suggest abscess. Electronically signed by: Beulah Robles MD 07/02/23 05:51 AM Hospital Course (1) Cat bite of right hand: Patient seen in ER 06/28 and sent home on Augmentin BID with progressive swelling of hand into right upper extremity. On admission, WBC borderline w/ L shift. Procal 0.02 Given Unasyn, Vancomycin, tetanus shot in ER MRI w/w/o contrast: Nonspecific subcutaneous edema and is prominence of the dorsum of the hand without organized fluid collection to suggest abscess. Continued Unasyn, Vancomycin IV while inpatient and WBC normal on repeat, no fevers. Elevation, pain control Blood cultures remained NGTD Orthopedics consulted, no intervention, no abscess/fluid collection. continue course abx On eval 07/02 after additional IV dosing abx, almost complete resolution of erythema, significant decreased edema and improvement in flexion/extension of her fingers/wrist and discussed with supervising provider and decision to discharge on Bactrim for broader coverage and including MRSA coverage not prior w/ Augmentin as well as Flagyl for anaerobic coverage To continue abx, elevation and pain control at discharge. 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 S/p radioactive iodine ablation TSH wnl on check, continue home Synthroid 75mcg daily Other chronic medical problems History of asthma/COPD without exacerbation. -- 97% on RA, lungs clear -- continued home meds Depression - chronic, stable. continued home escitalopram 10mg daily Plan discharge home on Bactrim/Flagyl and pain control. To return if any worsening however was MUCH improved on exam 07/01 however wanted to keep overnight for additional IV abx given failure of outpatient treatment Total Time Total Time Spent Total Time Spent (In Minutes): 45 Discharge Plan Discharge Items Patient Disposition: Home - Self-Care Reason For Visit: CAT BITE CELLULITIS, FAILED OUTPATIENT TREATMENT Discharge Diagnosis: Cellulitis of hand 2nd to cat bite, failure of outpatient treatment Condition on Discharge: Good Goals: You have been hospitalized for an acute medical problem. During your stay at [facility], we have made an effort to correct the problem that brought you to the hospital while keeping you as comfortable as possible. Medications were used to bring your condition under control and your discharge instructions will include directions for any medications you should take after leaving the hospital. Please make sure you see your Primary Care Provider as part of your follow up plan. Activity: As commented below Non-emergency contact: Primary Care Provider Call non-emergency contact if: you have any medication questions, your symptoms worsen, your pain is not controlled and you have a fever Follow-up/Referrals: Tania Murcia MD [Primary Care Provider] - 07/09/23 11:00 am Diet: Heart Healthy Addtl Attending Provider Instructions: You have been hospitalized following a cat bite and failure of outpatient antibi otics. Imaging was obtained and negative for acute fluid collection or abscess thankfully and orthopedics was consulted and reviewed imaging and agreed that best course is continued course of antibiotics and no need for surgical intervention at this time. Blood cultures have been negative and your white count has normalized and no fever. You have been given IV antibiotics called Vancomycin and Unasyn and this will cover for broad spectrum and decision based on failure of the prior Augmentin treatment and will be sending you on course of antibiotics called Bactrim which will be twice daily and Flagyl which will be three times a day for another 5 days to complete the course. As discussed, please avoid any alcohol while on this medication as this can make you very sick. Monitor for any significant increase in diarrhea and alert your doctor if this occurs. Oxycodone has been given for pain relief and monitor for constipation while on pain medication and can take over the counter stool softener if this occurs. Continue to keep the hand elevated to above the level of the heart as much as possible and gentle range of motion. Please follow up with primary care in the next 7-10 days after discharge to monitor your progress after hospitalization. Please return to the ER with any fever/chills, increased redness/swelling or uncontrolled pain, or for any other symptoms concerning for you. It has been a pleasure being a part of the medical team providing for you while you have been in the hospital. Take care! Pending Studies at Discharge: Yes Studies:: Blood cultures -- no growth to date Stand-Alone Forms: [facility] [employer], Pain - Opioid Pain Management Medications and DC Order Prescriptions: New oxycodone 5 mg Tablet 5 mg PO Q4H PRN (Reason: pain) Qty: 10 0RF metronidazole 500 mg tablet 500 mg PO Q8H 5 Days Qty: 15 0RF sulfamethoxazole-trimethoprim 800-160 mg tablet 1 tab PO BID 5 Days Qty: 10 0RF Continued lorazepam 0.5 mg tablet 0.5 mg PO DAILY PRN (Reason: flight anxiety) Qty: 5 0RF rosuvastatin 10 mg tablet 10 mg PO DAILY Qty: 90 3RF escitalopram oxalate 10 mg tablet 10 mg PO QAM Qty: 90 3RF levothyroxine 75 mcg tablet 75 mcg PO DAILY Qty: 30 2RF fluticasone furoate-vilanterol [Breo Ellipta] 100-25 mcg/dose blister with device 1 inh inhalation DAILY Qty: 60 2RF Airsupra 90-80 mcg/actuation HFA aerosol inhaler 2 inh inhalation TID PRN (Reason: shortness of breath) Qty: 10.7 1RF multivitamin tablet 1 tab PO QAM hydrochlorothiazide 25 mg tablet 25 mg PO DAILY Qty: 90 3RF telmisartan 20 mg tablet 20 mg PO DAILY Qty: 90 3RF fluocinonide 0.05 % cream 1 applic topical DIRECTED PRN (Reason: Skin Irritation) acetaminophen 500 mg Tablet 500 mg PO QID PRN (Reason: Pain) ibuprofen-acetaminophen [Advil Dual Action] 125-250 mg Tablet 1 tab PO Q8H PRN (Reason: Pain) Hold Instructions: HOLD while you are taking your prednisone course. Discontinued amoxicillin-pot clavulanate 875-125 mg tablet 1 tab PO BID 7 Days Qty: 14 0RF Rx Instructions: STARTED 06/29/23 FOR 7 DAYS azithromycin [Zithromax] 250 mg tablet 250 mg PO DAILY 4 Days Qty: 4 0RF Rx Instructions: STARTED 06/29/23 FOR 5 DAYS start on day 2 of therapy Discharge Orders: Discharge Order (Routine); Ordered 07/03/23 Ordered By: Leeanna Maradiaga Admission Data Admit Date/Time: 07/01/23 18:44 Attending Provider: Saurav Ward Admit Provider: Ajay Bartlett Primary Care Provider: Tania Murcia Other Providers: Ajay Bartlett; Kishore Laird Other Interventions: Discharge Summary Assessment (RN) Last Done: 07/03/23 10:01 Supervising Physician Co-Signing Physician Notes The patient was not seen by me. The chart was reviewed. Case discussed with KATARINA Cha. Agree with assessment and plan. The patient is medically stable for discharge today, July 02 Coding Level of Care Code 93910 INP/OBS DISCH >30 MIN Diagnoses Cat bite of right hand S61.451D; W55.01XD Encounter type: subsequent encounter Primary hypertension I10 Hyperlipidemia E78.5 Hx of thyroid cancer Z85.850
[2023-07-04] MEDS ORDERED: VANCOMYCIN LEVEL ONE (04:00)
== END 2023-07-03 10:32 | disposition home or self-care (01) ==
LOC: ED 16:50 → 3W 16:50 → SUATTDRO 18:44 → 3W 21:38